=== PATIENT | female | born 1995 ===

== ENCOUNTER 2020-10-16 10:09 | Emergency (ER) | payer OTHER, SELFPAY ==
[2020-10-16 10:43] VITALS: PULSE 80; RESP 16; TEMP 36.9; O2SAT 99; BMI 28.3
[2020-10-16] MEDS: 0.9 % Sodium Chloride 1,000 ML 999 ML IV (12:08)
[2020-10-16 12:16] LABS: Basophils Percent Auto 0.3 % (0-2); Eosinophils Absolute Auto 0.1 X10*3/uL (0.0-0.4); Eosinophils Percent Auto 1.6 % (0-4); Hemoglobin 12.2 g/dl (12.0-16.0); Imm Gran Abs Auto 0.02 X10*3/uL (0.00-0.03); Imm Gran Pct Auto 0.3 % (0.0-0.4); Lymphocytes Absolute Auto 1.7 X10*3/uL (1.2-4.9); Lymphocytes Percent Auto 23.9 % (20-40); MANUAL DIFF FLAG NO; Mean Corpuscular Hemoglobin 26.7 pg (27.0-33.0); Mean Platelet Volume 8.9 fL (9.4-12.3); Monocytes Absolute Auto 0.6 X10*3/uL (0.1-1.2); Monocytes Percent Auto 8.4 % (2-11); Neutrophils Absolute Auto 4.8 X10*3/uL (2.0-8.3); Neutrophils Percent Auto 65.5 % (45-73); Platelet Count 341 X10*3/uL (160-400); Red Blood Count 4.57 X10*6/uL (4.20-5.50); Red Cell Distribution Width 13.6 % (11.0-16.0); White Blood Count 7.3 X10*3/uL (4.8-10.8)
[2020-10-16 12:19] LABS: UPreg QC Valid YES; Urine Pregnancy POSITIVE (NEGATIVE)
--- NOTE | 2020-10-16 12:28 | US_ITS ---
EXAMINATION: ULTRASOUND OB LESS THAN 14 WEEKS CLINICAL INFORMATION: Right-sided pelvic pain COMPARISON: Ultrasound OB 12/26/2019 TECHNIQUE: Transabdominal pelvic ultrasound was performed. FINDINGS: The uterus is anteverted. There is a intrauterine gestational sac with visualization of yolk sac, pole and a heart rate. The heart rate measures 1 20 bpm. The crown-rump length measures 0.52 cm corresponding to 6 weeks 2 days and PAUL of 06/09/2021. Right ovary measures 3.0 x 2.5 x 2.0 cm. There is a small corpus luteal cyst measuring 2.0 x 1.5 x 1.2 cm. Left ovary measures 2.0 x 1.9 x 1.9 cm. There is no free fluid in cul-de-sac. US/US OB <= 14 weeks fetus IMPRESSION: Single live intrauterine fetus with an ultrasound distal age of 6 weeks and 2 days. Simple corpus luteal cyst right ovary. The left ovary is unremarkable.
[2020-10-16 12:46] LABS: Alanine Aminotransferase 11 U/L (0-31); Albumin Level 4.5 g/dL (3.5-5.0); Alkaline Phosphatase 52 U/L (39-117); Anion Gap 15 (12-20); Aspartate Amino Transferase 15 U/L (5-31); Bilirubin Total 0.7 mg/dL (0.0-1.0); Blood Urea Nitrogen 12 mg/dL (9-16); Calcium 9.4 mg/dL (8.4-10.2); Carbon Dioxide 23 mmol/L (22-29); Chloride 101 mmol/L (96-108); Creatinine Clr Calc Pharmacy 99.5; Estimated Glomerular Filt Rate > 60; Glucose Random 79 mg/dL (60-115); Sodium 135 mmol/L (135-145); Total Protein 7.7 g/dL (6.5-8.0)
[2020-10-16] MEDS: ondansetron HCL 4 MG/2 ML VIAL IVPUSH (13:34)
[2020-10-16 14:00] VITALS: O2SAT 16
[2020-10-16 14:01] LABS: Glucose Urine UA NEG (NEG); Leukocyte Esterase Urine NEG (NEG); Nitrite Urine NEG (NEG); Specific Gravity - Urine >= 1.030 (1.005-1.025); Urine Blood NEG (NEG); Urine Ketones >=80 MG/DL (NEG); Urine Protein NEG (NEG-TRACE)
[2020-10-16 14:08] LABS: Appearance Urine HAZY; Color Urine YELLOW
[2020-10-16 14:12] LABS: UACC CULT YES
[2020-10-16 14:13] LABS: RBC Urine 0 /HPF (0); Squamous Epithelial Cell Urine 3+ /LPF
[2020-10-16 14:14] LABS: Bacteria Urine 2+ /LPF; Mucus Urine TRACE /LPF
--- NOTE | 2020-10-16 15:29 | PC.NURSE ---
pt requested iv to be removed. pt left w/o dc paperwork.
--- NOTE | 2020-10-16 15:38 | ED.ABDPAIN ---
HPI - Abdominal Pain General Chief Complaint: Abdominal Pain <Tim Talavera NP - Last Filed: 10/16/20 15:48> Stated Complaint: abd pain <Tim Talavera NP - Last Filed: 10/16/20 15:48> Time Seen by Provider: 10/16/20 10:34 <Tim Talavera NP - Last Filed: 10/16/20 15:48> Source: patient <Tim Talavera NP - Last Filed: 10/16/20 15:48> Mode of arrival: ambulatory <Tim Talavera NP - Last Filed: 10/16/20 15:48> Limitations: no limitations <Tim Talavera NP - Last Filed: 10/16/20 15:48> History of Present Illness HPI narrative: 25-year-old female who reports history of urine tract infection with pyelonephritis in the past presenting with complaint of malodorous urine and left-sided pelvic pain and mild right flank pain ongoing for past several days with associated nausea and vomiting. States urine is malodorous but no dysuria. No concern for STI. No rash. States there is no recent travel or antibiotic use. <Tim Talavera NP - Last Filed: 10/16/20 15:48> MD elicited complaint: abdominal pain and flank pain <Tim Talavera NP - Last Filed: 10/16/20 15:48> Location: pelvis <Tim Talavera NP - Last Filed: 10/16/20 15:48> Severity: moderate <Tim Talavera NP - Last Filed: 10/16/20 15:48> Quality: aching <Tim Talavera NP - Last Filed: 10/16/20 15:48> Migration to: no migration <Tim Talavera NP - Last Filed: 10/16/20 15:48> Associated symptoms: denies other symptoms <Tim Talavera NP - Last Filed: 10/16/20 15:48> Related Data Home Medications: Home Medications Medication Instructions Recorded Confirmed No Known Home Meds 10/16/20 10/16/20 <Tim Talavera NP - Last Filed: 10/16/20 15:48> Allergies/Adverse Reactions: Allergies Allergy/AdvReac Type Severity Reaction Status Date / Time No Known Allergies Allergy Unknown UNKNOWN Unverified 06/20/20 16:51 [NO KNOWN ALLERGIES] <Tim Talavera NP - Last Filed: 10/16/20 15:48> Review of Systems Review of Systems Constitutional: No Weight loss, No Fever, No Chills, No Night Sweats, No Fatigue, No Malaise ENT/Mouth: No Hearing loss, No Ear Pain, No Nasal Congestion, No Sinus Pain, No Hoarseness, No sore throat, No Rhinorrhea, No Swallowing Difficulty Eyes: No Eye Pain, No Swelling, No Redness, No Foreign Body, No Discharge, No Vision Changes Cardiovascular: No Chest Pain, No SOB, No Dyspnea on Exertion, No Orthopnea, No Edema, No Palpitations Respiratory: No Cough, No Sputum, No Wheezing, No Smoke Exposure, No Dyspnea Gastrointestinal: As noted in HPI, No Hematochezia, No Melena Genitourinary: no irregular bleeding, No Dysuria, No Urinary Frequency, No Hematuria, No Urinary Incontinence, No Urgency, No Flank Pain, No Urinary Flow Changes, No Hesitancy Musculoskeletal: No joint pain, No Myalgias, No Joint Swelling Skin: No Skin Lesions, No rash Neuro: No Weakness, No Numbness, No Paresthesias, No Loss of Consciousness, No Dizziness, No Headache Psych: No Social Issues Heme/Lymph: No Bruising, No Bleeding,No Lymphadenopathy Endocrine: No Polyuria, No Polydipsia, No Temperature Intolerance <Tim Talavera NP - Last Filed: 10/16/20 15:48> Yes all other systems are reviewed and are negative <Tim Talavera NP - Last Filed: 10/16/20 15:48> Physical Exam Vital Signs: Vital Signs: Last Vital Signs Temp 98.4 F 10/16/20 10:43 Pulse 80 10/16/20 10:43 Resp 16 10/16/20 10:43 Pulse Ox 16 L 10/16/20 14:00 Body Mass Index 28.3 Reviewed <Tim Talavera NP - Last Filed: 10/16/20 15:48> Vital Signs: Last Vital Signs Temp 98.4 F 10/16/20 10:43 Pulse 80 10/16/20 10:43 Resp 16 10/16/20 10:43 Pulse Ox 16 L 10/16/20 14:00 Body Mass Index 28.3 <Benji Waldrop MD - Last Filed: 10/24/20 23:58> Const: General: cooperative and healthy appearing; No acute distress or intoxicated appearing <Tim LottTIFFANY webb - Last Filed: 10/16/20 15:48> Nutritional Appearance: average body habitus <Tim Talavera COMMIS CHEF - Last Filed: 10/16/20 15:48> Orientation/consciousness: patient oriented x3 <[facility] Talavera, COMMIS CHEF - Last Filed: 10/16/20 15:48> HENMT: Head: Yes normal to inspection <Tim Talavera, - Last Filed: 10/16/20 15:48> Ears: hearing grossly normal bilaterally <[facility] Talavera, COMMIS CHEF - Last Filed: 10/16/20 15:48> Eyes: General: appearance normal, both eyes and all related structures <Timtorito Talavera COMMIS CHEF - Last Filed: 10/16/20 15:48> Visual Mena: normal visual mena by confrontation <Tim Talavera, COMMIS CHEF - Last Filed: 10/16/20 15:48> Neck: Neck: Yes normal visual inspection, No positive Brudzinski's sign, No positive Kernig's sign and No tender <Tim Talavera, COMMIS CHEF - Last Filed: 10/16/20 15:48> Thyroid: Thyroid normal <Tim Talavera, COMMIS CHEF - Last Filed: 10/16/20 15:48> Chest: Chest palpation & inspection: normal inspection of the chest <Tim Lotttracey COMMIS CHEF - Last Filed: 10/16/20 15:48> Resp: Effort & Inspection: normal respiratory effort <Tim TalaveraTIFFANY webb - Last Filed: 10/16/20 15:48> Cardio: Jugular venous distension: no JVD <Tim Talavera, COMMIS CHEF - Last Filed: 10/16/20 15:48> Rhythm: regular rhythm <Tim Talavera, COMMIS CHEF - Last Filed: 10/16/20 15:48> Heart sounds: S1 normal heart sound present and S2 normal heart sound present <Tim Talavera, COMMIS CHEF - Last Filed: 10/16/20 15:48> GI: Inspection: Yes normal to inspection <[facility] TalaveraTIFFANY webb - Last Filed: 10/16/20 15:48> Palpation (GI): Soft to palpation, not firm, nontender, no guarding, not rigid and hepatosplenomegaly present <Tim TIFFANY Talavera - Last Filed: 10/16/20 15:48> Percussion: Yes normal to percussion <Tim TIFFANY Talavera - Last Filed: 10/16/20 15:48> Auscultation: normal bowel sounds <Tim TIFFANY Talavera - Last Filed: 10/16/20 15:48> : General: Yes no CVA tenderness <Tim TIFFANY Talavera - Last Filed: 10/16/20 15:48> Back/Spine/Pelvis: Back: no CVA tenderness <[facility] TIFFANY Talavera - Last Filed: 10/16/20 15:48> Skin: General skin exam: no rashes or lesions noted <Tim TIFFANY Talavera - Last Filed: 10/16/20 15:48> Neuro: General: patient oriented x3 <Timtorito Talavera NP - Last Filed: 10/16/20 15:48> Extrem: General: Yes normal to inspection <Tim TIFFANY Talavera - Last Filed: 10/16/20 15:48> Course Course Course Narrative: In review 25-year-old female who reports history of urine infection as well as pyelonephritis presenting with complaint of malodorous urine with left-sided pelvic pain as well as left-sided flank pain feeling consistent with her prior urine infection. States no concern for STI. Upon arrival nontoxic appearing. Has had some associated nausea and vomiting. Will check labs including UA and U preg. Will treat with IV fluids. Clinically at this time no acute abdomen. No CVA tenderness. Points to pain in the right lower pelvic region. States she is sure she does not have any STI and would like to defer testing at this time. <Timtorito Talavera NP - Last Filed: 10/16/20 15:48> I have reviewed the chart <Benji Waldrop MD - Last Filed: 10/24/20 23:58> Reevaluation(s) Reevaluation #1: In review of chart appears to be she is chronically mildly anemic. Today CBC is within normal limits. Chemistry still pending. Lab called with UA positive however unable to do an Allis is not enough urine patient advised to give us another urine. States she has suspicion about . At this time pelvic ultrasound ordered rule out ectopic . She has been resting comfortably on her phone receiving IV fluids. <Tim Talavera NP - Last Filed: 10/16/20 15:48> Reevaluation #2: Urine positive ketones given fluid here. No nausea or vomiting. Her chemistries are unremarkable. She went for ultrasound and awaiting results. <Tim Talavera NP - Last Filed: 10/16/20 15:48> Reevaluation #3: Shortly after reviewed her lab results with her and aware that were awaiting ultrasound results she apparently told nurse that she had to go home as she had things going on the the nurse informed me the patient did not want to wait and eloped. Per the nurse the patient has stated to her that the respiratory therapy technician had provided her pictures of her for her and given her estimate date. I reviewed the ultrasound shows findings consistent with Single IUP with gestational age of 6 weeks 2 days Simple corpus luteal cyst right ovary. The left ovary is unremarkable. I attempted to call the patient left a voicemail no answer. HCG quant ordered. If patient returns call will refer to her primary care and our OB team for follow-up. <Tim Talavera NP - Last Filed: 10/16/20 15:48> MDM - Abdominal Pain Lab Data Result diagrams: : 10/16/20 12:09 10/16/20 12:09 <Tim Talavera NP - Last Filed: 10/16/20 15:48> Labs: Lab Results 10/16/20 10/16/20 10/16/20 Range/Units 12:09 12:09 12:09 WBC 7.3 (4.8-10.8) X10*3/uL RBC 4.57 (4.20-5.50) X10*6/uL Hgb 12.2 (12.0-16.0) g/dl Hct 37.0 (37-47) % MCV 81.0 (80-98) fL MCH 26.7 L (27.0-33.0) pg MCHC 33.0 (31.0-35.0) g/dl RDW 13.6 (11.0-16.0) % Plt Count 341 (160-400) X10*3/uL MPV 8.9 L (9.4-12.3) fL Immature Gran % (Auto) 0.3 (0.0-0.4) % Neut % (Auto) 65.5 (45-73) % Lymph % (Auto) 23.9 (20-40) % Reagan % (Auto) 8.4 (2-11) % Eos % (Auto) 1.6 (0-4) % Baso % (Auto) 0.3 (0-2) % Lymph # (Auto) 1.7 (1.2-4.9) X10*3/uL Reagan # (Auto) 0.6 (0.1-1.2) X10*3/uL Eos # (Auto) 0.1 (0.0-0.4) X10*3/uL Baso # (Auto) 0.0 (0.0-0.2) X10*3/uL Abs Immat Gran (auto) 0.02 (0.00-0.03) X10*3/uL Absolute Neuts (auto) 4.8 (2.0-8.3) X10*3/uL Absolute Nucleated RBC 0.000 (0.0-0.012) X10*3/uL Nucleated RBC % (auto) 0.0 (0.0-0.2) /100WBC Sodium 135 (135-145) mmol/L Potassium 4.0 (3.3-5.1) mmol/l Chloride 101 (96-108) mmol/L Carbon Dioxide 23 (22-29) mmol/L Anion Gap 15 (12-20) BUN 12 (9-16) mg/dL Creatinine 0.70 (0.5-1.4) mg/dL Estim Creat Clear Calc 99.5 Estimated GFR > 60 Random Glucose 79 (60-115) mg/dL Calcium 9.4 (8.4-10.2) mg/dL Total Bilirubin 0.7 (0.0-1.0) mg/dL AST 15 (5-31) U/L ALT 11 (0-31) U/L Alkaline Phosphatase 52 (39-117) U/L Total Protein 7.7 (6.5-8.0) g/dL Albumin 4.5 (3.5-5.0) g/dL Urine Color Cancelled Urine Appearance Cancelled Urine pH Cancelled Ur Specific [employer] Cancelled Urine Protein Cancelled Urine Glucose (UA) Cancelled Urine Ketones Cancelled Urine Blood Cancelled Urine Nitrite Cancelled Ur Leukocyte Esterase Cancelled Urine RBC (0) /HPF Urine WBC (0-4) /HPF Ur Squamous Epith Cells /LPF Urine Bacteria /LPF Urine Mucus /LPF Urine Test POSITIVE H (NEGATIVE) 10/16/20 Range/Units 13:35 WBC (4.8-10.8) X10*3/uL RBC (4.20-5.50) X10*6/uL Hgb (12.0-16.0) g/dl Hct (37-47) % MCV (80-98) fL MCH (27.0-33.0) pg MCHC (31.0-35.0) g/dl RDW (11.0-16.0) % Plt Count (160-400) X10*3/uL MPV (9.4-12.3) fL Immature Gran % (Auto) (0.0-0.4) % Neut % (Auto) (45-73) % Lymph % (Auto) (20-40) % Reagan % (Auto) (2-11) % Eos % (Auto) (0-4) % Baso % (Auto) (0-2) % Lymph # (Auto) (1.2-4.9) X10*3/uL Reagan # (Auto) (0.1-1.2) X10*3/uL Eos # (Auto) (0.0-0.4) X10*3/uL Baso # (Auto) (0.0-0.2) X10*3/uL Abs Immat Gran (auto) (0.00-0.03) X10*3/uL Absolute Neuts (auto) (2.0-8.3) X10*3/uL Absolute Nucleated RBC (0.0-0.012) X10*3/uL Nucleated RBC % (auto) (0.0-0.2) /100WBC Sodium (135-145) mmol/L Potassium (3.3-5.1) mmol/l Chloride (96-108) mmol/L Carbon Dioxide (22-29) mmol/L Anion Gap (12-20) BUN (9-16) mg/dL Creatinine (0.5-1.4) mg/dL Estim Creat Clear Calc Estimated GFR Random Glucose (60-115) mg/dL Calcium (8.4-10.2) mg/dL Total Bilirubin (0.0-1.0) mg/dL AST (5-31) U/L ALT (0-31) U/L Alkaline Phosphatase (39-117) U/L Total Protein (6.5-8.0) g/dL Albumin (3.5-5.0) g/dL Urine Color YELLOW Urine Appearance HAZY Urine pH 6.0 Ur Specific [employer] >= 1.030 H Urine Protein NEG Urine Glucose (UA) NEG Urine Ketones >=80 Urine Blood NEG Urine Nitrite NEG Ur Leukocyte Esterase NEG Urine RBC 0 (0) /HPF Urine WBC 5-9 H (0-4) /HPF Ur Squamous Epith Cells 3+ /LPF Urine Bacteria 2+ /LPF Urine Mucus TRACE /LPF Urine Test (NEGATIVE) <Tim Talavera NP - Last Filed: 10/16/20 15:48> Lab Results 10/16/20 10/16/20 10/16/20 Range/Units 12:09 12:09 12:09 WBC 7.3 (4.8-10.8) X10*3/uL RBC 4.57 (4.20-5.50) X10*6/uL Hgb 12.2 (12.0-16.0) g/dl Hct 37.0 (37-47) % MCV 81.0 (80-98) fL MCH 26.7 L (27.0-33.0) pg MCHC 33.0 (31.0-35.0) g/dl RDW 13.6 (11.0-16.0) % Plt Count 341 (160-400) X10*3/uL MPV 8.9 L (9.4-12.3) fL Immature Gran % (Auto) 0.3 (0.0-0.4) % Neut % (Auto) 65.5 (45-73) % Lymph % (Auto) 23.9 (20-40) % Reagan % (Auto) 8.4 (2-11) % Eos % (Auto) 1.6 (0-4) % Baso % (Auto) 0.3 (0-2) % Lymph # (Auto) 1.7 (1.2-4.9) X10*3/uL Reagan # (Auto) 0.6 (0.1-1.2) X10*3/uL Eos # (Auto) 0.1 (0.0-0.4) X10*3/uL Baso # (Auto) 0.0 (0.0-0.2) X10*3/uL Abs Immat Gran (auto) 0.02 (0.00-0.03) X10*3/uL Absolute Neuts (auto) 4.8 (2.0-8.3) X10*3/uL Absolute Nucleated RBC 0.000 (0.0-0.012) X10*3/uL Nucleated RBC % (auto) 0.0 (0.0-0.2) /100WBC Sodium 135 (135-145) mmol/L Potassium 4.0 (3.3-5.1) mmol/l Chloride 101 (96-108) mmol/L Carbon Dioxide 23 (22-29) mmol/L Anion Gap 15 (12-20) BUN 12 (9-16) mg/dL Creatinine 0.70 (0.5-1.4) mg/dL Estim Creat Clear Calc 99.5 Estimated GFR > 60 Random Glucose 79 (60-115) mg/dL Calcium 9.4 (8.4-10.2) mg/dL Total Bilirubin 0.7 (0.0-1.0) mg/dL AST 15 (5-31) U/L ALT 11 (0-31) U/L Alkaline Phosphatase 52 (39-117) U/L Total Protein 7.7 (6.5-8.0) g/dL Albumin 4.5 (3.5-5.0) g/dL Urine Color Cancelled Urine Appearance Cancelled Urine pH Cancelled Ur Specific [employer] Cancelled Urine Protein Cancelled Urine Glucose (UA) Cancelled Urine Ketones Cancelled Urine Blood Cancelled Urine Nitrite Cancelled Ur Leukocyte Esterase Cancelled Urine RBC (0) /HPF Urine WBC (0-4) /HPF Ur Squamous Epith Cells /LPF Urine Bacteria /LPF Urine Mucus /LPF Urine Test POSITIVE H (NEGATIVE) 10/16/20 Range/Units 13:35 WBC (4.8-10.8) X10*3/uL RBC (4.20-5.50) X10*6/uL Hgb (12.0-16.0) g/dl Hct (37-47) % MCV (80-98) fL MCH (27.0-33.0) pg MCHC (31.0-35.0) g/dl RDW (11.0-16.0) % Plt Count (160-400) X10*3/uL MPV (9.4-12.3) fL Immature Gran % (Auto) (0.0-0.4) % Neut % (Auto) (45-73) % Lymph % (Auto) (20-40) % Reagan % (Auto) (2-11) % Eos % (Auto) (0-4) % Baso % (Auto) (0-2) % Lymph # (Auto) (1.2-4.9) X10*3/uL Reagan # (Auto) (0.1-1.2) X10*3/uL Eos # (Auto) (0.0-0.4) X10*3/uL Baso # (Auto) (0.0-0.2) X10*3/uL Abs Immat Gran (auto) (0.00-0.03) X10*3/uL Absolute Neuts (auto) (2.0-8.3) X10*3/uL Absolute Nucleated RBC (0.0-0.012) X10*3/uL Nucleated RBC % (auto) (0.0-0.2) /100WBC Sodium (135-145) mmol/L Potassium (3.3-5.1) mmol/l Chloride (96-108) mmol/L Carbon Dioxide (22-29) mmol/L Anion Gap (12-20) BUN (9-16) mg/dL Creatinine (0.5-1.4) mg/dL Estim Creat Clear Calc Estimated GFR Random Glucose (60-115) mg/dL Calcium (8.4-10.2) mg/dL Total Bilirubin (0.0-1.0) mg/dL AST (5-31) U/L ALT (0-31) U/L Alkaline Phosphatase (39-117) U/L Total Protein (6.5-8.0) g/dL Albumin (3.5-5.0) g/dL Urine Color YELLOW Urine Appearance HAZY Urine pH 6.0 Ur Specific [employer] >= 1.030 H Urine Protein NEG Urine Glucose (UA) NEG Urine Ketones >=80 Urine Blood NEG Urine Nitrite NEG Ur Leukocyte Esterase NEG Urine RBC 0 (0) /HPF Urine WBC 5-9 H (0-4) /HPF Ur Squamous Epith Cells 3+ /LPF Urine Bacteria 2+ /LPF Urine Mucus TRACE /LPF Urine Test (NEGATIVE) <Benji Waldrop MD - Last Filed: 10/24/20 23:58> Discharge Plan Discharge Clinical Impression: , Nausea & vomiting <Tim Talavera NP - Last Filed: 10/16/20 15:48> Patient Disposition: Elopement <Tim Talavera NP - Last Filed: 10/16/20 15:48> Prescriptions: No Action No Known Home Meds RF: 0 <Tim Talavera NP - Last Filed: 10/16/20 15:48> Referrals: Johnson Olivera MD [Physician] - 2 days <Tim Talavera NP - Last Filed: 10/16/20 15:48> Interventions: ED Discharge Assessment Last Done: 10/16/20 15:59 <Tim Talavera NP - Last Filed: 10/16/20 15:48> Discharge Date/Time: 10/16/20 15:59 <Tim Talavera NP - Last Filed: 10/16/20 15:48> PMF Past Medical History Medical History: Medical History (Updated 10/17/20 @ 00:00 by Deloris Hubbard) No known health problems <Tim Talavera NP - Last Filed: 10/16/20 15:48> Social History Social History: Social History Alcohol intake: never Smoked in Last 30 Days: No Use of substances other than those prescribed or required for medical reasons: No Advance Directives: No Advance Directives Information Provided: Yes <Tim Talavera NP - Last Filed: 10/16/20 15:48>
== END 2020-10-16 15:59 | disposition left against medical advice (07) ==
PROVIDERS: Nurse Practitioner Primary Care; Emergency Provider Emergency Medicine; PCP Family Medicine
DX: O34.81 Maternal care for other abnormalities of pelvic organs, first trimester (principal); Z3A.01 Less than 8 weeks gestation of pregnancy; R11.2 Nausea with vomiting, unspecified
CPT/HCPCS: 36415; 76801; 80053; 81001; 81025; 85025; 87086; 87088; 87186; 96361; 96374; 99284; J2405

== ENCOUNTER 2022-04-09 12:06 | Emergency (ER) | payer OTHER, SELFPAY ==
--- NOTE | ~2022-04-09 | US_ITS ---
EXAMINATION: US VENOUS ULTRASOUND WITH DOPPLER LOWER EXTREMITY, BILATERAL CLINICAL INFORMATION: Bilateral lower extremity swelling with COMPARISON: None TECHNIQUE: Ultrasound of the deep veins is performed from the hip to the calf with compression sonography and color and pulse Doppler assessment. Spectral analysis with color-flow imaging is performed. FINDINGS: RIGHT: There is normal venous compression and respiratory variation and augmented flow. The visualized common femoral vein, superficial femoral vein, profunda femoral vein, popliteal vein, and the trifurcation region shows no evidence of deep venous thrombosis. There is no significant popliteal fossa cyst. LEFT: There is normal venous compression and respiratory variation and augmented flow. The visualized common femoral vein, superficial femoral vein, profunda femoral vein, popliteal vein, and the trifurcation region shows no evidence of deep venous thrombosis. There is no significant popliteal fossa cyst. If the patient's symptoms persist, followup ultrasound in 5 days 7 days might be of value to exclude proximal propagation from a non-visualized calf vein. US/US venous duplex LE BI IMPRESSION: No DVT demonstrated either lower extremity.
--- NOTE | ~2022-04-09 | US_ITS ---
EXAMINATION: US RETROPERITONEAL LIMITED (RENAL ONLY) CLINICAL INFORMATION: Right kidney stones. COMPARISON: 09/15/2019 TECHNIQUE: Sonographic evaluation of the kidneys was performed with a high-frequency transducer. FINDINGS: RIGHT KIDNEY: 10.5 x 4.4 x 5.7 cm (SAG x AP x TRV). The kidney is normal in size, contour, and echogenicity. Renal cortical thickness is normal. No calculi or focal parenchymal lesions. No hydronephrosis. LEFT KIDNEY: 9.5 x 4.4 x 4.8 cm (SAG x AP x TRV). The kidney is normal in size, contour, and echogenicity. Renal cortical thickness is normal. No calculi or focal parenchymal lesions. No hydronephrosis. US/US renal BI IMPRESSION: No hydronephrosis or calculus identified.
--- NOTE | ~2022-04-09 | US_ITS ---
EXAMINATION: US OBSTETRICAL ULTRASOUND CLINICAL INFORMATION: Abdomen/flank pain, COMPARISON: None. TECHNIQUE: Sonographic evaluation of the pelvis was performed transabdominally and transvaginally. FINDINGS: The uterus measures 9.0 cm in length and 4.0 x 5.3 cm in AP and transverse dimensions. There is an anechoic focus along the endometrium, suggestive of a gestational sac with mean sac diameter of 0.3 cm. No definite yolk sac or pole is seen at this time. The right ovary measures 4.2 x 2.2 x 2.3 cm. There is a complex structure in the right ovary measuring up to 2.2 cm without internal flow, suggestive of a corpus luteal cyst. The left ovary measures 3.3 x 1.9 x 3.7 cm. No adnexal mass is identified. No free fluid is seen. US/US OB pelvic and transvaginal IMPRESSION: A 0.3 cm anechoic focus along the endometrium is suggestive of a gestational sac, though no yolk sac or pole is seen at this time to definitively confirm intrauterine . Therefore, short-term sonographic follow-up is recommended to assess for these findings. No adnexal mass is seen to strongly suggest ectopic .
[2022-04-09 12:17] VITALS: BP 120/78; PULSE 94; RESP 18; TEMP 36.6; O2SAT 99; BMI 31.8
[2022-04-09 12:36] LABS: MANUAL DIFF FLAG NO
[2022-04-09 12:39] LABS: Appearance Urine CLEAR; Basophils Percent Auto 0.4 % (0-2); Color Urine YELLOW; Eosinophils Absolute Auto 0.3 X10*3/uL (0.0-0.4); Eosinophils Percent Auto 4.1 % (0-4); Glucose Urine UA NEG (NEG); Hematocrit 35.4 % (37.0-47.0); Hemoglobin 11.7 g/dl (12.0-16.0); Imm Gran Abs Auto 0.04 X10*3/uL (0.00-0.03); Imm Gran Pct Auto 0.5 % (0.0-0.4); Leukocyte Esterase Urine TRACE (NEG); Lymphocytes Absolute Auto 2.6 X10*3/uL (1.2-4.9); Lymphocytes Percent Auto 35.9 % (20-40); Mean Corpuscular HGB Conc 33.1 g/dl (31.0-35.0); Mean Corpuscular Volume 84.7 fL (80.0-98.0); Mean Platelet Volume 9.1 fL (9.4-12.3); Monocytes Absolute Auto 0.5 X10*3/uL (0.1-1.2); Monocytes Percent Auto 7.2 % (2-11); Neutrophils Absolute Auto 3.8 x10*3/uL (2.0-8.3); Neutrophils Percent Auto 51.9 % (45-73); Nitrite Urine NEG (NEG); PH 5.5 (5.0-8.0); Platelet Count 315 X10*3/uL (160-400); Red Blood Count 4.18 X10*6/uL (4.20-5.50); Red Cell Distribution Width 13.1 % (11.0-16.0); Specific Gravity - Urine 1.025 (1.005-1.025); Urine Blood NEG (NEG); Urine Ketones NEG (NEG); Urine Protein NEG (NEG-TRACE); White Blood Count 7.3 X10*3/uL (4.8-10.8)
[2022-04-09 12:45] LABS: UPreg QC Valid YES; Urine Pregnancy POSITIVE (NEGATIVE)
[2022-04-09 12:52] LABS: Alanine Aminotransferase 11 U/L (0-31); Albumin Level 4.1 g/dL (3.5-5.0); Alkaline Phosphatase 56 U/L (39-117); Anion Gap 11 (12-20); Aspartate Amino Transferase 14 U/L (5-31); Bilirubin Total 0.4 mg/dL (0.0-1.0); Blood Urea Nitrogen 7 mg/dL (9-16); Calcium 9.2 mg/dL (8.4-10.2); Carbon Dioxide 24 mmol/L (22-29); Chloride 107 mmol/L (96-108); Creatinine Clr Calc Pharmacy 102.5; Estimated Glomerular Filt Rate > 60; Glucose Random 82 mg/dL (60-115); Potassium 3.8 mmol/L (3.3-5.1); Sodium 138 mmol/L (135-145); Total Protein 6.9 g/dL (6.5-8.0)
[2022-04-09 12:53] LABS: Bacteria Urine 1+ /LPF; Squamous Epithelial Cell Urine 2+ /LPF
[2022-04-09 14:07] VITALS: BP 117/76; PULSE 87; RESP 16; TEMP 36.9; O2SAT 100
--- NOTE | 2022-04-09 14:11 | PC.NURSE ---
pt a/o x 4 no sob/trey noted skin pink warm dry speaks in full sentences. corinna lower ext 1+ non-pitting edema noted. aware.
--- NOTE | 2022-04-09 14:19 | ED_ITS ---
HPI - Abdominal Pain General Chief Complaint: Abdominal Pain Stated Complaint: right side pain, severe ankle swellen, abd pain Time Seen by Provider: 04/09/22 13:55 Source: patient Mode of arrival: ambulatory Limitations: no limitations History of Present Illness HPI narrative: 27-year-old female presents ED for multiple complaints. Patient's 1st complaint is right flank and right lower abdominal cramping for the past week. Patient denies any vaginal bleeding or abnormal vaginal discharge. Denies any recent trauma. Patient's secondary complaint is bilateral ankle swelling for a week also. Patient denies any chest pain or shortness of breath. Patient denies any dizziness, headache, or passing out. Patient states her menstruation has been inconsistent. Patient states last normal menstruation was in February. Patient denies any pleurisy, recent long travel, recent surgery, or any oral control pills. Related Data Previous Rx's Medication Instructions Recorded cephalexin 500 mg capsule 500 mg PO QID 7 days #28 caps 04/09/22 Allergies Allergy/AdvReac Type Severity Reaction Status Date / Time No Known Allergies Allergy Unknown UNKNOWN Verified 04/09/22 12:17 [NO KNOWN ALLERGIES] Review of Systems Review of Systems Right-sided flank lower abdominal pain. Bilateral ankle swelling. Yes all other systems are reviewed and are negative PMFSH Past Medical History Medical History No known health problems Social History Social History Alcohol intake: never Patient Tobacco Use Status: Never used Tobacco Physical Exam ED Vital Signs: Vital Signs - 24 hr 04/09/22 12:17 04/09/22 14:07 04/09/22 17:09 Temperature 97.9 F 98.5 F 98.5 F Pulse Rate 94 87 103 H Respiratory Rate 18 16 20 Blood Pressure 120/78 117/76 107/54 L Pulse Oximetry 99 100 99 Oxygen Delivery Method Room Air Room Air Room Air BMI result Body Mass Index 31.8 Const General: cooperative, healthy appearing, comfortable, no acute distress, well developed, alert, awake and Physically active Orientation/consciousness: oriented to time and patient oriented x3 HENMT Head: Yes normal to inspection, Yes No palpable skull fracture present, Yes normocephalic, Yes atraumatic and No abrasion Eyes General: appearance normal, both eyes and all related structures Neck Neck: Yes normal visual inspection, Yes full ROM, Yes no lymphadenopathy, Yes no meningeal signs, Yes trachea midline, Yes supple, No anterior neck swelling and No tender Chest Chest palpation & inspection: normal inspection of the chest and normal palpation of entire chest wall Resp Effort & Inspection: normal respiratory effort and able to speak in complete sentences Auscultation: clear to auscultation bilaterally Cardio Jugular venous distension: no JVD Heart sounds: S1 normal heart sound present and S2 normal heart sound present GI Inspection: Yes normal to inspection and No abdominal wall ecchymosis Palpation (GI): not firm, Tenderness to palpation present (GI) in the RLQ, no guarding and not rigid General: No CVA tenderness and Yes no CVA tenderness External Female Exam: normal external appearance Speculum Exam - Vagina: normal appearance of the vagina and normal vaginal discharge Speculum Exam - Cervix: normal appearance of the cervix, normal palpation and Cervical os closed Bimanual exam- vagina & uterus: normal palpation Back/Spine/Pelvis Back: no CVA tenderness, No CVA tenderness and No back tenderness Skin General skin exam: no rashes or lesions noted, elasticity normal and turgor normal Neuro General: oriented to time, patient oriented x3, gait normal, no meningeal signs and CN's II-XI intact bilaterally Extrem General: Yes normal to inspection and Yes full ROM Ankle/foot/toe images: 1. Positive for bilateral ankle swelling. Negative for any erythema, crepitus, ecchymosis, or deformity. Pedal pulses intact. Negative for swelling of leg/calf/knee. Pedal pulse intact. Motor/neuro/vascular exam intact 2. Positive for bilateral ankle swelling. Negative for any erythema, crepitus, ecchymosis, or deformity. Pedal pulses intact. Negative for swelling of leg/calf/knee. Pedal pulse intact. Motor/neuro/vascular exam intact Psych Appearance: grossly normal, well kempt and not disheveled Course Course Course Narrative: Labs ordered. Reevaluation(s) Reevaluation #1: Patient's urine is positive for . Patient did not know she was . Patient did not believe she is because she is on Depo shot as a control. Will add abdominal ultrasound to rule out topic . Will do ultrasound of kidneys to make sure there is no kidney stones. Urine does not show protein and blood pressure normal. Not suspecting Preecamplsia. Due to patient found to be but does not know how far along. Due to not knowing how far along she is in we will add bilateral lower extremity ultrasound. Lower extremity ultrasound ordered. HCG ordered. BNP ordered to rule out any hypertrophic cardiomyopathy other very unlikely due to patient not having any chest pain or shortness of breath. Time: 14:35 Reevaluation #2: Lower extremity ultrasound negative for DVT. BNP. negative. Not suspecting DVT or hypertrophic cardiomyopathy. Ultrasound of kidneys negative for any kidney stones. Ultrasound shows gestational sac but no pole and negative for signs of ectopic . HCG at least 1500. Case discussed with Dr. Olivera of OBGYN who states patient is safe for discharge recommend patient return to the ED in 2 days for repeat hCG and ultrasound. Patient made aware of this. Patient states she will follow up again with her OBGYN at [facility] and was informed if she can't have appointment by Wednesday she should return to the ED for repeat ultrasound and hCG. UA shows UTI discharged with Keflex. Bilateral ankle swelling due to . EKG was not done. Not suspecting any heart attack. No need for troponin. No need for chest x-ray not suspecting CHF. BNP negative and patient having any chest pain or shortness of breath. Not suspecting PE. Time: 18:51 MDM - Abdominal Pain MDM Narrative Medical decision making narrative: . UTI Lab Data Result diagrams: 04/09/22 12:26 04/09/22 12:26 Labs: Lab Results 04/09/22 04/09/22 04/09/22 Range/Units 12:26 12:26 12:26 WBC 7.3 (4.8-10.8) X10*3/uL RBC 4.18 L (4.20-5.50) X10*6/uL Hgb 11.7 L (12.0-16.0) g/dl Hct 35.4 L (37.0-47.0) % MCV 84.7 (80.0-98.0) fL MCH 28.0 (27.0-33.0) pg MCHC 33.1 (31.0-35.0) g/dl RDW 13.1 (11.0-16.0) % Plt Count 315 (160-400) X10*3/uL MPV 9.1 L (9.4-12.3) fL Immature Gran % (Auto) 0.5 H (0.0-0.4) % Neut % (Auto) 51.9 (45-73) % Lymph % (Auto) 35.9 (20-40) % [place] % (Auto) 7.2 (2-11) % Eos % (Auto) 4.1 H (0-4) % Baso % (Auto) 0.4 (0-2) % Lymph # (Auto) 2.6 (1.2-4.9) X10*3/uL [place] # (Auto) 0.5 (0.1-1.2) X10*3/uL Eos # (Auto) 0.3 (0.0-0.4) X10*3/uL Baso # (Auto) 0.0 (0.0-0.2) X10*3/uL Abs Immat Gran (auto) 0.04 H (0.00-0.03) X10*3/uL Absolute Neuts (auto) 3.8 (2.0-8.3) x10*3/uL Absolute Nucleated RBC 0.000 (0.0-0.012) X10*3/uL Nucleated RBC % (auto) 0.0 (0.0-0.2) /100WBC PT (10.0-13.1) SEC INR (0.9-1.1) APTT (24.1-38.0) SEC Sodium 138 (135-145) mmol/L Potassium 3.8 (3.3-5.1) mmol/L Chloride 107 (96-108) mmol/L Carbon Dioxide 24 (22-29) mmol/L Anion Gap 11 L (12-20) BUN 7 L (9-16) mg/dL Creatinine 0.71 (0.5-1.4) mg/dL Estim Creat Clear Calc 102.5 Estimated GFR > 60 Random Glucose 82 (60-115) mg/dL Calcium 9.2 (8.4-10.2) mg/dL Total Bilirubin 0.4 (0.0-1.0) mg/dL AST 14 (5-31) U/L ALT 11 (0-31) U/L Alkaline Phosphatase 56 (39-117) U/L B-Natriuretic Peptide (<100) pg/mL Total Protein 6.9 (6.5-8.0) g/dL Albumin 4.1 (3.5-5.0) g/dL Beta HCG, Quant 1512 mIU/mL Urine Color YELLOW Urine Appearance CLEAR Urine pH 5.5 (5.0-8.0) Ur Specific [place] 1.025 (1.005-1.025) Urine Protein NEG (NEG-TRACE) MG/DL Urine Glucose (UA) NEG (NEG) MG/DL Urine Ketones NEG (NEG) MG/DL Urine Blood NEG (NEG) Urine Nitrite NEG (NEG) Ur Leukocyte Esterase TRACE H (NEG) Urine RBC 1-4 (0) /HPF Urine WBC 5-9 H (0-4) /HPF Ur Squamous Epith Cells 2+ /LPF Urine Bacteria 1+ /LPF Urine Test (NEGATIVE) 04/09/22 04/09/22 04/09/22 Range/Units 12:26 12:26 14:24 WBC (4.8-10.8) X10*3/uL RBC (4.20-5.50) X10*6/uL Hgb (12.0-16.0) g/dl Hct (37.0-47.0) % MCV (80.0-98.0) fL MCH (27.0-33.0) pg MCHC (31.0-35.0) g/dl RDW (11.0-16.0) % Plt Count (160-400) X10*3/uL MPV (9.4-12.3) fL Immature Gran % (Auto) (0.0-0.4) % Neut % (Auto) (45-73) % Lymph % (Auto) (20-40) % [place] % (Auto) (2-11) % Eos % (Auto) (0-4) % Baso % (Auto) (0-2) % Lymph # (Auto) (1.2-4.9) X10*3/uL [place] # (Auto) (0.1-1.2) X10*3/uL Eos # (Auto) (0.0-0.4) X10*3/uL Baso # (Auto) (0.0-0.2) X10*3/uL Abs Immat Gran (auto) (0.00-0.03) X10*3/uL Absolute Neuts (auto) (2.0-8.3) x10*3/uL Absolute Nucleated RBC (0.0-0.012) X10*3/uL Nucleated RBC % (auto) (0.0-0.2) /100WBC PT 11.2 (10.0-13.1) SEC INR 1.0 (0.9-1.1) APTT 34.1 (24.1-38.0) SEC Sodium (135-145) mmol/L Potassium (3.3-5.1) mmol/L Chloride (96-108) mmol/L Carbon Dioxide (22-29) mmol/L Anion Gap (12-20) BUN (9-16) mg/dL Creatinine (0.5-1.4) mg/dL Estim Creat Clear Calc Estimated GFR Random Glucose (60-115) mg/dL Calcium (8.4-10.2) mg/dL Total Bilirubin (0.0-1.0) mg/dL AST (5-31) U/L ALT (0-31) U/L Alkaline Phosphatase (39-117) U/L B-Natriuretic Peptide 49 (<100) pg/mL Total Protein (6.5-8.0) g/dL Albumin (3.5-5.0) g/dL Beta HCG, Quant mIU/mL Urine Color Urine Appearance Urine pH (5.0-8.0) Ur Specific [place] (1.005-1.025) Urine Protein (NEG-TRACE) MG/DL Urine Glucose (UA) (NEG) MG/DL Urine Ketones (NEG) MG/DL Urine Blood (NEG) Urine Nitrite (NEG) Ur Leukocyte Esterase (NEG) Urine RBC (0) /HPF Urine WBC (0-4) /HPF Ur Squamous Epith Cells /LPF Urine Bacteria /LPF Urine Test POSITIVE H (NEGATIVE) Discharge Plan Discharge Clinical Impression: , , spontaneous threatened, UTI (urinary tract infection) during Patient Disposition: Home, Self-Care Instructions: Threatened Miscarriage (ED), (ED), Urinary Tract Infection in (ED) Additional Instructions: Recommend repeat hCG blood test and ultrasound on Wednesday. If your OBGYN at [facility] cannot schedule for hCG and ultrasound on Wednesday at the facility he should return back to the ED for repeat hCG and ultrasound. Return to the ED immediately for any abdominal pain, profuse vaginal bleeding, vaginal bleeding, vaginal discharge, weakness, dizziness, chest pain, shortness of breath, calf pain, coughing up blood, weakness, dizziness, or any other concerning symptoms. Prescriptions: New cephalexin 500 mg capsule 500 mg PO QID 7 Days Qty: 28 0RF Stand Alone Forms: Work/School Release Interventions: ED Discharge Assessment Last Done: 04/09/22 19:12 Discharge Date/Time: 04/09/22 19:12 Print Language: [place]
[2022-04-09 14:42] LABS: Prothrombin Time 11.2 SEC (10.0-13.1)
[2022-04-09 14:44] LABS: Partial Thromboplastin Time 34.1 SEC (24.1-38.0)
[2022-04-09 14:47] LABS: HCG Quantitative 1512 mIU/mL
[2022-04-09 14:53] LABS: B Type Natriuretic Peptide 49 pg/mL (<100)
--- NOTE | 2022-04-09 15:22 | PC.NURSE ---
pt to us
[2022-04-09 17:09] VITALS: BP 107/54; PULSE 103; RESP 20; TEMP 36.9; O2SAT 99
--- NOTE | 2022-04-09 18:36 | P.CONOB_ITS ---
[employer]PERVISOR - CN: HPI Data of Consult Consult date: 04/09/22 Primary Care Provider: None Physician Consult Narrative Narrative: I was consulted on Annika Ruth who is a 27 year old female presented emergency room with abdominal pain no vaginal bleeding in addition to other complaints in the lower extremity bilateral swelling and upper leg pain and knee pain . The workup in the emergency room include the following: HCG 1512, CBC within normal, Rh positive, UA was positive for WBCs and leukocyte esterase, ultrasound showed the following: The uterus measures 9.0 cm in length and 4.0 x 5.3 cm in AP and transverse dimensions. There is an anechoic focus along the endometrium, suggestive of a gestational sac with mean sac diameter of 0.3 cm. No definite yolk sac or pole is seen at this time. The right ovary measures 4.2 x 2.2 x 2.3 cm. There is a complex structure in the right ovary measuring up to 2.2 cm without internal flow, suggestive of a corpus luteal cyst. The left ovary measures 3.3 x 1.9 x 3.7 cm. No adnexal mass is identified. No free fluid is seen. cc:: CC: OB [facility] Past Medical History Medical History No known health problems Social History Social History Alcohol intake: never Patient Tobacco Use Status: Never used Tobacco Use of substances other than those prescribed or required for medical reasons: No Advance Directives: No Advance Directives Information Provided: No Patient : No Meds Allergies Allergy/AdvReac Type Severity Reaction Status Date / Time No Known Allergies Allergy Unknown UNKNOWN Verified 04/09/22 12:17 [NO KNOWN ALLERGIES] Home Medications Medication Instructions Recorded Confirmed Last Taken Type No Known Home Meds 10/16/20 10/16/20 Unknown History [employer] Physical Exam Vitals Vital signs: Temp Pulse Resp BP Pulse Ox O2 Del Method 98.5 F 103 H 20 107/54 L 99 04/09/22 17:09 04/09/22 17:09 04/09/22 17:09 04/09/22 17:09 04/09/22 17:09 04/09/22 17:09 BMI result Body Mass Index 31.8 Additional Comments: Physical exam reported by MAGGIE Siu as the following Abdominal exam has benign, no guarding findings and pelvic exam, cervix closed with no other abnormalities [employer]PER[employer] - Results Labs CBC & Chem 7: 04/09/22 12:26 04/09/22 12:26 Labs: Short CBC 04/09/22 Range/Units 12:26 WBC 7.3 (4.8-10.8) X10*3/uL Hgb 11.7 L (12.0-16.0) g/dl Hct 35.4 L (37.0-47.0) % Plt Count 315 (160-400) X10*3/uL BMP 04/09/22 12:26 Sodium 138 Potassium 3.8 Chloride 107 Carbon Dioxide 24 BUN 7 L Creatinine 0.71 Calcium 9.2 Liver Function 04/09/22 Range/Units 12:26 Total Bilirubin 0.4 (0.0-1.0) mg/dL AST 14 (5-31) U/L ALT 11 (0-31) U/L Alkaline Phosphatase 56 (39-117) U/L Albumin 4.1 (3.5-5.0) g/dL Urine 04/09/22 04/09/22 Range/Units 12:26 12:26 Urine Color YELLOW Urine Appearance CLEAR Urine pH 5.5 (5.0-8.0) Ur Specific [place] 1.025 (1.005-1.025) Urine Protein NEG (NEG-TRACE) MG/DL Urine Glucose (UA) NEG (NEG) MG/DL Urine Test POSITIVE H (NEGATIVE) Imaging US - abdomen: Radiologist's impression: ITS Impressions Renal Ultrasound 04/09/22 14:55 IMPRESSION: No hydronephrosis or calculus identified. Venous Duplex 04/09/22 15:12 IMPRESSION: No DVT demonstrated either lower extremity. Pelvic/Transvag US 04/09/22 15:25 IMPRESSION: A 0.3 cm anechoic focus along the endometrium is suggestive of a gestational sac, though no yolk sac or pole is seen at this time to definitively confirm intrauterine . Therefore, short-term sonographic follow-up is recommended to assess for these findings. No adnexal mass is seen to strongly suggest ectopic . Assessment and Plan (1) Early stage of : Status: Acute Plan Recommended to MAGGIE Freedman in the emergency room the following: The patient is to follow up in the emergency room in 48 hours, to Repeat hCG in 48 hours with repeat pelvic ultrasound to confirm intrauterine gestation and rule out ectopic , meanwhile discharge the patient home with SAB and ectopic warnings, she is to come back in case of abdominal/pelvic pain or vaginal bleeding. vitamin 1 tablet p.o. q.d. Since UA is positive for leukocyte esterase and blood, recommended to send urine culture and treat with nitrofurantoin 100 mg p.o. b.i.d. for 5 days. I would defer the remaining workup and management of the lower extremity complained of the patient to the ER team. I spent a total of 20 minutes reviewing the chart, communicating with the ER provider and documenting in the medical record
== END 2022-04-09 19:12 | disposition home or self-care (01) ==
PROVIDERS: Physician Assistant; Emergency Provider Emergency Medicine
DX: O20.0 Threatened abortion (principal); R10.31 Right lower quadrant pain; N39.0 Urinary tract infection, site not specified; R60.0 Localized edema; Z3A.00 Weeks of gestation of pregnancy not specified
CPT/HCPCS: 36415; 76775; 76801; 76817; 80053; 81001; 81025; 83880; 84702; 85025; 85610; 85730; 93970; 99284

== ENCOUNTER 2022-06-22 13:15 | Emergency (ER) | payer OTHER, SELFPAY ==
[2022-06-22 13:19] VITALS: BP 125/78; PULSE 95; RESP 18; TEMP 36.3; O2SAT 99; BMI 32.3
--- NOTE | 2022-06-22 13:22 | ECG_ITS ---
Test Reason : od Blood Pressure : / mmHG Vent. Rate : 095 BPM Atrial Rate : 095 BPM P-R Int : 112 ms QRS Dur : 066 ms QT Int : 338 ms P-R-T Axes : 040 000 031 degrees QTc Int : 424 ms Normal sinus rhythm Normal ECG No previous ECGs available Referred By: Generic ED Physician Electronically Signed By:BOBO OLIVERA
[2022-06-22 13:55] LABS: MANUAL DIFF FLAG NO
[2022-06-22 13:56] LABS: Basophils Percent Auto 0.3 % (0-2); Eosinophils Absolute Auto 0.2 X10*3/uL (0.0-0.4); Eosinophils Percent Auto 1.6 % (0-4); Hematocrit 40.2 % (37.0-47.0); Hemoglobin 13.6 g/dl (12.0-16.0); Imm Gran Abs Auto 0.03 X10*3/uL (0.00-0.03); Imm Gran Pct Auto 0.3 % (0.0-0.4); Lymphocytes Absolute Auto 2.7 X10*3/uL (1.2-4.9); Lymphocytes Percent Auto 24.4 % (20-40); Mean Corpuscular HGB Conc 33.8 g/dl (31.0-35.0); Mean Corpuscular Hemoglobin 27.4 pg (27.0-33.0); Mean Platelet Volume 9.1 fL (9.4-12.3); Monocytes Absolute Auto 0.6 X10*3/uL (0.1-1.2); Monocytes Percent Auto 5.2 % (2-11); Neutrophils Absolute Auto 7.4 x10*3/uL (2.0-8.3); Neutrophils Percent Auto 68.2 % (45-73); Platelet Count 355 X10*3/uL (160-400); Red Blood Count 4.96 X10*6/uL (4.20-5.50); Red Cell Distribution Width 13.1 % (11.0-16.0); White Blood Count 10.8 X10*3/uL (4.8-10.8)
[2022-06-22 14:03] LABS: Appearance Urine Clear; Color Urine Yellow; Glucose Urine UA Negative (Negative); Leukocyte Esterase Urine Small (1+) (Negative); Nitrite Urine Positive (Negative); PH 5.5 (5.0-9.0); Specific Gravity - Urine 1.025 (1.005-1.025); UMIC TRIGGER UACC YES; Urine Blood Negative (Negative); Urine Ketones Negative (Negative); Urine Protein Negative (Neg-Trace)
[2022-06-22 14:05] LABS: Bacteria Urine 4+ (None Seen); Hyaline Casts Urine 0-2 /LPF (0-2); UACC Culture Trigger YES
[2022-06-22 14:05] LABS: UPreg QC Valid YES; Urine Pregnancy NEGATIVE (NEGATIVE)
[2022-06-22 14:16] LABS: Acetaminophen LAB 2 mcg/mL (<30); Alanine Aminotransferase 12 U/L (0-31); Albumin Level 4.8 g/dL (3.5-5.0); Alkaline Phosphatase 62 U/L (39-117); Anion Gap 18 (12-20); Aspartate Amino Transferase 16 U/L (5-31); Bilirubin Direct 0.2 mg/dL (0.0-0.5); Bilirubin Total 0.4 mg/dL (0.0-1.0); Blood Urea Nitrogen 10 mg/dL (9-16); Calcium 9.9 mg/dL (8.4-10.2); Carbon Dioxide 21 mmol/L (22-29); Chloride 104 mmol/L (96-108); Creatinine Clr Calc Pharmacy 83.3; Estimated Glomerular Filt Rate > 60; Ethanol < 10 mg/dL; Glucose Random 86 mg/dL (60-115); Lipase 21 U/L (8-78); Potassium 3.5 mmol/L (3.3-5.1); Salicylate 21.6 mg/dL (15-30); Sodium 139 mmol/L (135-145); Total Protein 8.2 g/dL (6.5-8.0)
--- NOTE | 2022-06-22 14:56 | ED_ITS ---
HPI - Overdose General Chief Complaint: Overdose Stated Complaint: Took 9-10 excedrin T-1/N/V Time Seen by Provider: 06/22/22 14:37 Source: patient Mode of arrival: ambulatory Limitations: no limitations History of Present Illness HPI Narrative: Patient presents emergency department for evaluation of abdominal pain in addition to nausea and vomiting after accidental overdose. She states that she has been experiencing dental pain due to fractured molars and impaction, has appointment with an oral surgeon in August 2022. States that last night around 2330 within 1 hour time frame she took 10 pills of either Excedrin migraine or Excedrin extra-strength in addition to ibuprofen 800 mg due to her amount of pain. She denies any suicidal ideations. She states that she wanted the pain to go away, and pop couple of extra holes with help. She reports a single episode of vomiting today. Pain to the abdomen is epigastric and localized, 6/10. Denies any fevers, chills, bloody or dark stools/emesis. Related Data Previous Rx's Medication Instructions Recorded cephalexin 500 mg capsule 500 mg PO QID 7 days #28 caps 04/09/22 oxycodone 5 mg tablet 5 mg PO Q8H PRN pain #7 tabs 06/22/22 Allergies Allergy/AdvReac Type Severity Reaction Status Date / Time No Known Allergies Allergy Unknown UNKNOWN Verified 04/09/22 12:17 [NO KNOWN ALLERGIES] Review of Systems Review of Systems: Constitutional : No Weight loss, No Fever, No Chills ENT/Mouth :? No sore throat, No Rhinorrhea Eyes: No Swelling, No Redness Cardiovascular : No Chest Pain, No SOB, No Edema Respiratory : No Cough, No Sputum, No Wheezing Gastrointestinal : Positive Nausea, Positive Vomiting, no Diarrhea, positive abdominal pain, No Hematochezia, No Melena Genitourinary : No Dysuria, No Urinary Frequency, No Hematuria, No Urgency? Musculoskeletal : No joint pain, No Myalgias, No Joint Swelling Skin : No Skin Lesions, No rash Neuro : No Weakness, No Numbness, No Dizziness, No Headache Psych : No Anxiety/Panic, No Depression Heme/Lymph: No Bruising, No Lymphadenopathy Endocrine : No Polyuria, No Polydipsia Yes all other systems are reviewed and are negative PMFSH Past Medical History Attestation statement: The following information was validated with the patient. Source: old records reviewed Medical History No known health problems Social History Social History Alcohol intake: current Alcohol intake frequency: holidays/special occasions only Alcohol type: hard liquor Patient Tobacco Use Status: Never used Tobacco Smoked in Last 30 Days: No Use of substances other than those prescribed or required for medical reasons: No Advance Directives: No Advance Directives Information Provided: No Patient : No Physical Exam Vital Signs: Vital Signs: Last Vital Signs Temp 98.5 F 06/22/22 15:15 Pulse 80 06/22/22 15:15 Resp 16 06/22/22 15:15 BP 114/73 06/22/22 15:15 Pulse Ox 98 06/22/22 15:15 O2 Del Method 06/22/22 15:15 BMI result Body Mass Index 32.3 Appearance: Alert.?Oriented to person, place and time. No acute distress.?Normal affect. Eyes: Pupils equal, round and reactive to light.? ENT: Pharynx normal.??Dental fractures to the bilateral upper wisdom teeth without localized, erythema, or evidence of abscess. No trismus. Not consistent with retropharyngeal or peritonsillar abscess. Neck: Normal inspection.? Neck supple.?? CVS: Heart sounds normal. Normal heart rate and rhythm.? Pulses normal.?? Respiratory: No respiratory distress.? Lung sounds clear to auscultation bilaterally?? Abdomen: Soft and non-tender. Normoactive bowel sounds. ? Skin: Skin warm and dry.? Normal skin color.? Extremities: No lower extremity edema.? Neuro: Moves all extremities spontaneously. Sensation intact bilaterally. No focal neuro deficits. Ambulates with normal steady gait. Course Course Course Narrative: Patient is a 27-year-old female with no significant past medical history presenting to emergency department for evaluation of accidental acetaminophen an aspirin overdose. Has dental pain from a cracked wisdom teeth and impaction, scheduled for an appointment with Oral surgeon in August 2022. Patient reporting to have taken total of 2500mg acetaminophen. 2500mg aspirin, 800mg ibuprophen at 2330 yesterday. Serum labs obtained from triage at 1334. Reevaluation(s) Reevaluation #1: CBC and CMP are overall unremarkable. LFTs within normal limits. PTT/PT/INR pending at this time. Salicylate level 21.6, acetaminophen level to, ethyl alcohol <10. EKG reveals normal sinus rhythm, no acute ischemic findings or abnormalities. Urinalysis is positive for nitrates, leukocyte esterase, and urine WBC, States she is currently taking cephalexin as prescribed for prevention of dental infection, Given she is without genitourinary symptoms at this time will not had any additional coverage. Urine sent for culture, patient will be contacted with any concerning findings. Contacted poison control who at this time recommend supportive care, repeat acetaminophen 2 hrs after first, INR, salicylate level every 1-2 hours until there are 2 down trending less than 30, and venous blood gas. Sodium bicarbonate to be administered if salicylate level >30; bolus dosing as well as maintenance dosing. Patient due for repeat labs at 15:30 Time: 14:57 Reevaluation #2: 2 hour repeat acetaminophen level is down to 1, salicylate level is down to 19.4, will obtain repeat salicylate level within 1 hour, due for labs at 1630. VBG overall normal, mild metabolic acidosis with bicarb at 20. Per poison Control no indication for sodium bicarb at this time as salicylate level has not exceeded 30. Coagulation studies are within normal limits. Time: 15:59 Reevaluation #3: Patient's salicylate level continues to be down trending at 17.9, acetaminophen <1, vital signs are stable. Med and sedation status remains normal. Spoke with poison Control, who recommend cessation of lab monitoring at this time, patient would be cleared for discharge. Review these findings with patient. Discussed appropriate amount of acetaminophen/aspirin/ibuprofen to be consumed. Advised against the excessive use of medications as this will likely not alter the level of analgesia that she receives, and can cause internal organ damage. Patient verbalized understanding of this. Discussed with patient, provide oxycodone to use only for severe pain, advised that she will need to follow-up outpatient with her dental provider for further evaluation and treatment. Patient verbalized understanding. She is discharged home in stable condition. Time: 17:07 MDM - Overdose Medical Records Attestation: I reviewed the patient's medical records. Lab Data Attestation: I reviewed the patient's lab results. Result diagrams: 06/22/22 13:35 06/22/22 13:34 Labs: Lab Results 06/22/22 06/22/22 06/22/22 Range/Units 13:34 13:35 13:37 WBC 10.8 (4.8-10.8) X10*3/uL RBC 4.96 (4.20-5.50) X10*6/uL Hgb 13.6 (12.0-16.0) g/dl Hct 40.2 (37.0-47.0) % MCV 81.0 (80.0-98.0) fL MCH 27.4 (27.0-33.0) pg MCHC 33.8 (31.0-35.0) g/dl RDW 13.1 (11.0-16.0) % Plt Count 355 (160-400) X10*3/uL MPV 9.1 L (9.4-12.3) fL Immature Gran % (Auto) 0.3 (0.0-0.4) % Neut % (Auto) 68.2 (45-73) % Lymph % (Auto) 24.4 (20-40) % Harlan % (Auto) 5.2 (2-11) % Eos % (Auto) 1.6 (0-4) % Baso % (Auto) 0.3 (0-2) % Lymph # (Auto) 2.7 (1.2-4.9) X10*3/uL Harlan # (Auto) 0.6 (0.1-1.2) X10*3/uL Eos # (Auto) 0.2 (0.0-0.4) X10*3/uL Baso # (Auto) 0.0 (0.0-0.2) X10*3/uL Abs Immat Gran (auto) 0.03 (0.00-0.03) X10*3/uL Absolute Neuts (auto) 7.4 (2.0-8.3) x10*3/uL Absolute Nucleated RBC 0.000 (0.0-0.012) X10*3/uL Nucleated RBC % (auto) 0.0 (0.0-0.2) /100WBC PT (10.0-13.1) SEC INR (0.9-1.1) APTT (26.0-36.4) SEC VBG pH (7.32-7.43) VBG pCO2 mmHg VBG pO2 mmHg VBG HCO3 (22-26) mmol/L VBG O2 Saturation % VBG Base Excess mmol/L Sodium 139 (135-145) mmol/L Potassium 3.5 (3.3-5.1) mmol/L Chloride 104 (96-108) mmol/L Carbon Dioxide 21 L (22-29) mmol/L Anion Gap 18 (12-20) BUN 10 (9-16) mg/dL Creatinine 0.88 (0.5-1.4) mg/dL Estim Creat Clear Calc 83.3 Estimated GFR > 60 Random Glucose 86 (60-115) mg/dL Calcium 9.9 D (8.4-10.2) mg/dL Total Bilirubin 0.4 (0.0-1.0) mg/dL Direct Bilirubin 0.2 (0.0-0.5) mg/dL AST 16 (5-31) U/L ALT 12 (0-31) U/L Alkaline Phosphatase 62 (39-117) U/L Total Protein 8.2 H (6.5-8.0) g/dL Albumin 4.8 (3.5-5.0) g/dL Lipase 21 (8-78) U/L Urine Color Urine Appearance Urine pH (5.0-9.0) Ur Specific Gilmore (1.005-1.025) Urine Protein (Neg-Trace) mg/dL Urine Glucose (UA) (Negative) mg/dL Urine Ketones (Negative) mg/dL Urine Blood (Negative) Urine Nitrite (Negative) Ur Leukocyte Esterase (Negative) Urine RBC (0-2) /HPF Urine WBC (0-5) /HPF Ur Squamous Epith Cells (0-2) /HPF Urine Bacteria (None Seen) Hyaline Casts (0-2) /LPF Urine Test NEGATIVE (NEGATIVE) Salicylates 21.6 (15-30) mg/dL Acetaminophen 2 (<30) mcg/mL Ethyl Alcohol < 10 mg/dL 06/22/22 06/22/22 06/22/22 Range/Units 13:38 15:19 15:19 WBC (4.8-10.8) X10*3/uL RBC (4.20-5.50) X10*6/uL Hgb (12.0-16.0) g/dl Hct (37.0-47.0) % MCV (80.0-98.0) fL MCH (27.0-33.0) pg MCHC (31.0-35.0) g/dl RDW (11.0-16.0) % Plt Count (160-400) X10*3/uL MPV (9.4-12.3) fL Immature Gran % (Auto) (0.0-0.4) % Neut % (Auto) (45-73) % Lymph % (Auto) (20-40) % Harlan % (Auto) (2-11) % Eos % (Auto) (0-4) % Baso % (Auto) (0-2) % Lymph # (Auto) (1.2-4.9) X10*3/uL Harlan # (Auto) (0.1-1.2) X10*3/uL Eos # (Auto) (0.0-0.4) X10*3/uL Baso # (Auto) (0.0-0.2) X10*3/uL Abs Immat Gran (auto) (0.00-0.03) X10*3/uL Absolute Neuts (auto) (2.0-8.3) x10*3/uL Absolute Nucleated RBC (0.0-0.012) X10*3/uL Nucleated RBC % (auto) (0.0-0.2) /100WBC PT 12.2 (10.0-13.1) SEC INR 1.1 (0.9-1.1) APTT 34.0 (26.0-36.4) SEC VBG pH (7.32-7.43) VBG pCO2 mmHg VBG pO2 mmHg VBG HCO3 (22-26) mmol/L VBG O2 Saturation % VBG Base Excess mmol/L Sodium (135-145) mmol/L Potassium (3.3-5.1) mmol/L Chloride (96-108) mmol/L Carbon Dioxide (22-29) mmol/L Anion Gap (12-20) BUN (9-16) mg/dL Creatinine (0.5-1.4) mg/dL Estim Creat Clear Calc Estimated GFR Random Glucose (60-115) mg/dL Calcium (8.4-10.2) mg/dL Total Bilirubin (0.0-1.0) mg/dL Direct Bilirubin (0.0-0.5) mg/dL AST (5-31) U/L ALT (0-31) U/L Alkaline Phosphatase (39-117) U/L Total Protein (6.5-8.0) g/dL Albumin (3.5-5.0) g/dL Lipase (8-78) U/L Urine Color Yellow Urine Appearance Clear Urine pH 5.5 (5.0-9.0) Ur Specific Gilmore 1.025 (1.005-1.025) Urine Protein Negative (Neg-Trace) mg/dL Urine Glucose (UA) Negative (Negative) mg/dL Urine Ketones Negative (Negative) mg/dL Urine Blood Negative (Negative) Urine Nitrite Positive H (Negative) Ur Leukocyte Esterase Small (1+) H (Negative) Urine RBC 3-5 H (0-2) /HPF Urine WBC 6-10 H (0-5) /HPF Ur Squamous Epith Cells 6-10 (0-2) /HPF Urine Bacteria 4+ (None Seen) Hyaline Casts 0-2 (0-2) /LPF Urine Test (NEGATIVE) Salicylates 19.4 (15-30) mg/dL Acetaminophen 1 (<30) mcg/mL Ethyl Alcohol mg/dL 06/22/22 06/22/22 Range/Units 15:27 16:31 WBC (4.8-10.8) X10*3/uL RBC (4.20-5.50) X10*6/uL Hgb (12.0-16.0) g/dl Hct (37.0-47.0) % MCV (80.0-98.0) fL MCH (27.0-33.0) pg MCHC (31.0-35.0) g/dl RDW (11.0-16.0) % Plt Count (160-400) X10*3/uL MPV (9.4-12.3) fL Immature Gran % (Auto) (0.0-0.4) % Neut % (Auto) (45-73) % Lymph % (Auto) (20-40) % Harlan % (Auto) (2-11) % Eos % (Auto) (0-4) % Baso % (Auto) (0-2) % Lymph # (Auto) (1.2-4.9) X10*3/uL Harlan # (Auto) (0.1-1.2) X10*3/uL Eos # (Auto) (0.0-0.4) X10*3/uL Baso # (Auto) (0.0-0.2) X10*3/uL Abs Immat Gran (auto) (0.00-0.03) X10*3/uL Absolute Neuts (auto) (2.0-8.3) x10*3/uL Absolute Nucleated RBC (0.0-0.012) X10*3/uL Nucleated RBC % (auto) (0.0-0.2) /100WBC PT (10.0-13.1) SEC INR (0.9-1.1) APTT (26.0-36.4) SEC VBG pH 7.41 (7.32-7.43) VBG pCO2 32 mmHg VBG pO2 38 mmHg VBG HCO3 20 L (22-26) mmol/L VBG O2 Saturation 61.0 % VBG Base Excess -2.8 mmol/L Sodium (135-145) mmol/L Potassium (3.3-5.1) mmol/L Chloride (96-108) mmol/L Carbon Dioxide (22-29) mmol/L Anion Gap (12-20) BUN (9-16) mg/dL Creatinine (0.5-1.4) mg/dL Estim Creat Clear Calc Estimated GFR Random Glucose (60-115) mg/dL Calcium (8.4-10.2) mg/dL Total Bilirubin (0.0-1.0) mg/dL Direct Bilirubin (0.0-0.5) mg/dL AST (5-31) U/L ALT (0-31) U/L Alkaline Phosphatase (39-117) U/L Total Protein (6.5-8.0) g/dL Albumin (3.5-5.0) g/dL Lipase (8-78) U/L Urine Color Urine Appearance Urine pH (5.0-9.0) Ur Specific Gilmore (1.005-1.025) Urine Protein (Neg-Trace) mg/dL Urine Glucose (UA) (Negative) mg/dL Urine Ketones (Negative) mg/dL Urine Blood (Negative) Urine Nitrite (Negative) Ur Leukocyte Esterase (Negative) Urine RBC (0-2) /HPF Urine WBC (0-5) /HPF Ur Squamous Epith Cells (0-2) /HPF Urine Bacteria (None Seen) Hyaline Casts (0-2) /LPF Urine Test (NEGATIVE) Salicylates 17.9 (15-30) mg/dL Acetaminophen < 1 (<30) mcg/mL Ethyl Alcohol mg/dL ECG Data Attestation: I personally reviewed and interpreted this ECG as follows: ECG interpretation date: 06/22/22 Prior ECG tracings: not available for review Interpretation: Rate: 95 Rhythm:? Normal sinus rhythm Altheimer:? Normal Normal P waves.? Normal YOHAN.?? Normal QRS complex.?? ST T wave :??No ST elevation, no ST depression, no T-wave inversion qTC: 424 prior studies:? None available for review The study has been interpreted contemporaneously by me. Discharge Plan Discharge Clinical Impression: Accidental acetaminophen overdose, Accidental aspirin overdose, Pain, dental Patient Disposition: Home, Self-Care Instructions: Acetaminophen Overdose (ED), Toothache (ED) Additional Instructions: As we discussed, taking additional doses of [id number] pain medications will likely not results in increased pain management, and can actually cause damage to your internal organs. Refrain from any dwnd-[id number] medications today. Tomorrow you may resume [id number]-[id number] medications, You can take ibuprofen 200 mg, 3 tablets (600mg) every 6-8 hours as needed for pain, in addition to Tylenol 500 mg, 2 tablets (1,000mg) every 4-6 hours as needed for pain, but not to exceed 3 doses daily (3,000mg).? You have been given a prescription for oxycodone to use only as needed for severe pain. This is a narcotic. It may be addictive, it can make you drowsy. You should not drive, go to work, operate machinery, or drink alcohol while taking this medication. You will need to follow-up with your dental provider for further evaluation and treatment until you are able to be seen by the oral surgeon. Additionally, you may continue to contact the oral surgeon's office to see whether they may see you sooner than August. Return to emergency department with any new or worsening symptoms or concerns. Prescriptions: New oxycodone 5 mg tablet 5 mg PO Q8H PRN (Reason: pain) Qty: 7 0RF Rx Instructions: Partial Fill upon patient request. No Action cephalexin 500 mg capsule 500 mg PO QID 7 Days Qty: 28 0RF
[2022-06-22 15:15] VITALS: BP 114/73; PULSE 80; RESP 16; TEMP 36.9; O2SAT 98
[2022-06-22 15:31] LABS: Venous Blood Gas Refer to POC result
[2022-06-22 15:32] LABS: VBG Base Excess -2.8 mmol/L; VBG HCO3 20 mmol/L (22-26); VBG pCO2 32 mmHg; VBG pH 7.41 (7.32-7.43); VBG pO2 38 mmHg
[2022-06-22 15:51] LABS: Acetaminophen LAB 1 mcg/mL (<30); Salicylate 19.4 mg/dL (15-30)
[2022-06-22 15:55] LABS: INTERNATIONAL NORM RATIO 1.1 (0.9-1.1); Prothrombin Time 12.2 SEC (10.0-13.1)
[2022-06-22 17:01] LABS: Acetaminophen LAB < 1 mcg/mL (<30); Salicylate 17.9 mg/dL (15-30)
[2022-06-22 17:31] VITALS: BP 130/76; PULSE 94; RESP 18; O2SAT 99
== END 2022-06-22 17:32 | disposition home or self-care (01) ==
PROVIDERS: Nurse Practitioner Family; Emergency Provider Emergency Medicine
DX: T39.1X1A Poisoning by 4-Aminophenol derivatives, accidental (unintentional), initial encounter (principal); T39.311A Poisoning by propionic acid derivatives, accidental (unintentional), initial encounter; R10.13 Epigastric pain; Y92.003 Bedroom of unspecified non-institutional (private) residence as the place of occurrence of the external cause; K08.89 Other specified disorders of teeth and supporting structures
CPT/HCPCS: 36415; 80053; 80143; 80179; 81001; 81003; 81025; 82077; 82248; 82803; 83690; 85025; 85610; 85730; 87086; 87088; 87186; 93005; 99285

== ENCOUNTER 2022-06-30 08:03 | Emergency (ER) | payer OTHER, SELFPAY ==
[2022-06-30 08:06] VITALS: BP 122/74; PULSE 107; RESP 18; O2SAT 98; BMI 32.3
[2022-06-30 08:30] LABS: Strep A Nucleic Acid Positive (Negative)
[2022-06-30 08:41] LABS: COVID-19 Test Negative (Negative); IDNOW Serial# 55D5AD1C
--- NOTE | 2022-06-30 09:12 | ED.GENADULT ---
HPI - General Adult General Chief complaint: General Medical Stated complaint: throat pain/fever t-1 Time Seen by Provider: 06/30/22 09:12 Source: patient Mode of arrival: ambulatory Limitations: no limitations History of Present Illness HPI narrative: Patient is a 27 year old female presenting to the emergency department today with a sore throat. Patient states that over the last 2 days, she has had a sore throat. Patient denies any dizziness, lightheadedness, abdominal pain, nausea, vomiting, fever, chills, blurry vision, double vision, loss of vision, chest pain, difficulty breathing, shortness of breath, back pain, night sweats, pain with urination, increased urinary frequency, increased urinary urgency, blood in her urine or stool, syncope or a near syncopal episode, recent trauma or falls, bowel incontinence, bladder incontinence, bowel retention, bladder retention, or any other complaints at this time. Onset (ago): day(s) (2) Radiation: non-radiation Severity: mild Severity scale (1-10): 1 Quality: aching and dull Pain Consistency: constant Relieving factors: none Exacerbating factors: none Associated symptoms: denies other symptoms Treatments prior to arrival: none Related Data Previous Rx's Medication Instructions Recorded cephalexin 500 mg capsule 500 mg PO QID 7 days #28 caps 04/09/22 oxycodone 5 mg tablet 5 mg PO Q8H PRN pain #7 tabs 06/22/22 penicillin V potassium 500 mg 500 mg PO BID 10 days #20 tabs 06/30/22 tablet Allergies Allergy/AdvReac Type Severity Reaction Status Date / Time No Known Allergies Allergy Unknown UNKNOWN Verified 04/09/22 12:17 [NO KNOWN ALLERGIES] Review of Systems Constitutional: Constitutional: Reports no additional constitutional complaints, Denies chills, Denies fever(s) and Denies night sweats Eyes: Eyes: Reports no additional eye complaints, Denies blurry vision, Denies change in vision, Denies diplopia, Denies eye discharge, Denies loss of vision and Denies eye pain ENT: Denies dizziness and Reports sore throat Cardiovascular: Cardiovascular: Reports no additional cardiovascular complaints, Denies chest pain, Denies lightheadedness, Denies Loss of Consciousness and Denies dyspnea Respiratory: Respiratory: Reports no additional respiratory complaints and Denies dyspnea Gastrointestinal: Gastrointestinal: Reports no additional gastrointestinal complaints, Denies abdominal pain, Denies melena, Denies hematochezia, Denies change in bowel habits and Denies change in stool character Genitourinary: Genitourinary: Denies hematuria, Denies urinary frequency, Denies dysuria, Denies urinary incontinence, Denies urinary hesitancy and Denies urinary urgency Musculoskeletal: Musculoskeletal: Reports no additional musculoskeletal complaints, Denies numbness and Denies tingling Neurologic: Denies dizziness, Denies loss of vision, Denies numbness and Denies tingling Psychiatric: Psychiatric: Reports no additional psychiatric complaints Endocrine: Endocrine: Reports no additional endocrine complaints Hematologic/Lymphatic: Hematologic/Lymphatic: Reports no additional hematologic/lymphatic complaints Allergic/Immunologic: Allergic/Immunologic: Reports no additional allergic/immunologic complaints PMFSH Past Medical History Attestation statement: The following information was validated with the patient. Source: old records reviewed Medical History No known health problems Social History Social History Alcohol intake: current Alcohol intake frequency: holidays/special occasions only Alcohol type: hard liquor Patient Tobacco Use Status: Never used Tobacco Advance Directives: No Advance Directives Information Provided: No Physical Exam ED Vital Signs: Vital Signs - 24 hr 06/30/22 08:06 Pulse Rate 107 H Respiratory Rate 18 Blood Pressure 122/74 Pulse Oximetry 98 Oxygen Delivery Method Room Air BMI result Body Mass Index 32.3 Const General: cooperative, no acute distress, alert and awake Nutritional Appearance: well nourished Orientation/consciousness: patient oriented x3 Limitations: no limitations [facility] Head: Yes normal to inspection and Yes atraumatic Ears: hearing grossly normal bilaterally and external ears normal General nose exam: Normal external nose present, no nasal discharge noted and no epistaxis Face and sinus: Yes normal facial exam, No abrasion and No laceration Mouth: Normal oral and palatal mucosa present, no drooling and no muffled voice Throat: Yes abnormal tonsil (erythema with exudates) Eyes General: appearance normal, both eyes and all related structures Periorbital: periorbital findings normal Eyelids: Yes eyelids normal Conjunctivae: conjunctivae normal Pupils: Equal, round and reactive pupils present EOM: EOMs intact bilaterally Neck Neck: Yes normal visual inspection, Yes full ROM and Yes no lymphadenopathy Chest Chest palpation & inspection: normal inspection of the chest Resp Effort & Inspection: normal respiratory effort and able to speak in complete sentences Auscultation: clear to auscultation bilaterally Cardio Rate: regular rate Rhythm: regular rhythm GI Inspection: Yes normal to inspection Neuro General: patient oriented x3 and moves all extremities Cranial nerves: Yes Equal, round and reactive pupils present Cognition (Neuro): normal cognition Motor exam (neuro): 5/5 motor strength present throughout Sensory Exam: Normal double simultaneous stimulation for sensation Coordination: [id number] test normal Extrem General: Yes normal to inspection, Yes full ROM and Yes capillary refill normal Psych Appearance: grossly normal Mental Status: mental status grossly normal Affect: normal affect Attitude: cooperative Thought process: Normal thought process present Thought content: Normal thought content present Insight: Good insight present (Psych) Medical Decision Making MDM Narrative Medical decision making narrative: Patient is a 27 year old female presenting to the emergency department today with a sore throat. Patient's physical exam showed tonsilar erythema and exudates. Patient's rapid strep test was positive. I explained my physical exam findings as well as all test results to the patient. I answered all questions asked by the patient. I stressed the importance of the patient taking her medication as prescribed. I stressed the importance of the patient following up with her primary care provider. I stressed the importance of the patient returning to the emergency department immediately if her symptoms were to worsen or if she were to develop any dizziness, shortness of breath, difficulty breathing, chest pain, blurry vision, loss of vision, nausea, vomiting, abdominal pain, fever, chills, back pain, or any other complaints. Patient verbalized agreement and understanding with this treatment plan and discharge. Differential Diagnosis Differential Diagnosis: strep pharyngitis Medical Records Medical records reviewed: Yes I reviewed the patient's medical records. Lab Data Lab results reviewed: Yes I reviewed the patient's lab results. Labs: Lab Results 06/30/22 06/30/22 Range/Units 08:10 08:10 COVID-19 (REGIS) Negative (Negative) COVID-19 Clin Com See Note S. pyogenes GrpA MADDI Positive A (Negative) Discharge Plan Discharge Clinical Impression: Strep pharyngitis Patient Disposition: Home, Self-Care Additional Instructions: Follow up with your primary care provider. Return to the emergency department immediately if your symptoms worsen or if you develop any dizziness, shortness of breath, difficulty breathing, chest pain, blurry vision, loss of vision, nausea, vomiting, abdominal pain, fever, chills, back pain, or any other complaints. Prescriptions: New penicillin V potassium 500 mg tablet 500 mg PO BID 10 Days Qty: 20 0RF No Action cephalexin 500 mg capsule 500 mg PO QID 7 Days Qty: 28 0RF oxycodone 5 mg tablet 5 mg PO Q8H PRN (Reason: pain) Qty: 7 0RF Rx Instructions: Partial Fill upon patient request. Referrals: [facility] [Provider Group] (Call to establish and follow up with a primary care provider. If you already have a primary care provider, please follow up with them. ) [facility] [Provider [facility]] (Call to establish and follow up with a primary care provider. If you already have a primary care provider, please follow up with them. ) [facility] [Provider Group] (Call to establish and follow up with a primary care provider. If you already have a primary care provider, please follow up with them. ) Stand Alone Forms: Work/School Release Interventions: ED Discharge Assessment Last Done: 06/30/22 09:25 Discharge Date/Time: 06/30/22 09:25 Print Language: Andorran
== END 2022-06-30 09:25 | disposition home or self-care (01) ==
PROVIDERS: Emergency Provider Emergency Medicine
DX: J02.0 Streptococcal pharyngitis (principal); R50.9 Fever, unspecified; Z20.822 Contact with and (suspected) exposure to COVID-19
CPT/HCPCS: 87635; 87651; 99282; 99283

== ENCOUNTER 2023-03-14 13:17 | Emergency (ER) | payer OTHER, SELFPAY ==
--- NOTE | ~2023-03-14 | US_ITS ---
EXAMINATION: US OBSTETRICAL ULTRASOUND CLINICAL INFORMATION: Abdominal discomfort. Positive . COMPARISON: None available. LMP: 01/28/2023. Gestational age by maternal dates is 6 weeks 3 days. Estimated date of delivery by maternal dates is 11/04/2023. TECHNIQUE: Transabdominal first trimester OB ultrasound FINDINGS: There is a single intrauterine gestational sac with visible yolk sac, embryo/fetus, and cardiac activity. There is no significant subchorionic hemorrhage or hematoma. HR: 119 beats per minute. CRL (crown rump length): 0.43 cm (6 weeks 1 day +/- 4 days). PAUL (estimated date of delivery): 11/06/2023 +/- 4 days. MATERNAL ADNEXA: The right maternal ovary measures 3.2 x 2 x 1.8 cm. The left maternal ovary measures 2.2 x 1.2 x 1.2 cm. There is no significant maternal adnexal mass. No maternal pelvic ascites. US/US OB pelvic and transvaginal IMPRESSION: 1. Single intrauterine gestation with ultrasound gestational age of 6 weeks 1 day +/- 4 days. 2. Estimated date of delivery is 11/06/2023 +/- 4 days. 3. No maternal adnexal mass or pelvic ascites.
[2023-03-14 14:00] VITALS: BP 110/68; PULSE 85; RESP 18; TEMP 36.7; O2SAT 18; BMI 31.3
--- NOTE | 2023-03-14 14:31 | ED_ITS ---
HPI - Nausea/Vomiting/Diarrhea General Chief complaint: Nausea/Vomiting/Diarrhea Stated complaint: vomiting Time Seen by Provider: 03/14/23 17:08 Source: patient Mode of arrival: ambulatory Limitations: no limitations History of Present Illness HPI Narrative: Patient is G 7 P 3 A4, 6 weeks with vomiting for last 2 days no diarrhea unable to hold any fluids down. Patient not taking any medication had ultrasound done prior to my evaluation shows IUP 6 weeks 1 day, no significant abdominal pain Related Data Previous Rx's Medication Instructions Recorded cephalexin 500 mg capsule 500 mg PO QID 7 days #28 caps 04/09/22 oxycodone 5 mg tablet 5 mg PO Q8H PRN pain #7 tabs 06/22/22 penicillin V potassium 500 mg 500 mg PO BID 10 days #20 tabs 06/30/22 tablet cefuroxime axetil 250 mg tablet 250 mg PO BID 7 days #14 tabs 03/14/23 ondansetron 4 mg disintegrating 4 mg PO Q6-8H PRN nausea and 03/14/23 tablet vomiting #20 tabs Allergies Allergy/AdvReac Type Severity Reaction Status Date / Time No Known Allergies Allergy Unknown UNKNOWN Verified 04/09/22 12:17 [NO KNOWN ALLERGIES] Review of Systems Review of Systems: Yes all other systems are reviewed and are negative [facility] Past Medical History Medical History No known health problems Social History Social History Alcohol intake: current Alcohol intake frequency: holidays/special occasions only Alcohol type: hard liquor Patient Tobacco Use Status: Never used Tobacco Smoked in Last 30 Days: No Advance Directives: No Advance Directives Information Provided: No Patient : Yes Physical Exam Vital Signs: Vital Signs: Last Vital Signs Temp 98.7 F 03/14/23 19:48 Pulse 100 03/14/23 19:48 Resp 12 03/14/23 19:48 BP 106/57 L 03/14/23 19:48 Pulse Ox 100 03/14/23 19:48 O2 Del Method Room Air 03/14/23 19:48 BMI result Body Mass Index 31.3 Appearance: Alert. Oriented X3. No acute distress. Eyes: PERRLA, No Nystagmus ENT: Pharynx normal. Oral Mucosa moist Neck: Normal inspection. Neck supple. CVS: Normal heart rate and rhythm. Pulses normal. Respiratory: No respiratory distress. Equal air entry bilateral, no wheezing/rales/rhonchi Abdomen: Soft and nontender. Bowel sounds are present, no mass palpable, no CVA tenderness Skin: Skin warm and dry. Normal skin color. Normal skin turgor. Extremities: No lower extremity edema. No calf tenderness Neuro: Oriented X 3. No motor deficit. Course Course Course Narrative: RME; 27 yold female pregant abdomial discomfrot and no vaginal bleeding. no food stay down. labs and ultrasound ordered Medications Administered Discontinued Medications Generic Name Dose Route Start Last Admin Trade Name Freq PRN Reason Stop Dose Admin Sodium Chloride 1,000 mls @ 999 mls/hr 03/14/23 17:18 03/14/23 19:16 Ns IV 03/14/23 18:18 Infused .Q1H1M ONE Infusion Sodium Chloride 1,000 mls @ 999 mls/hr 03/14/23 17:18 03/14/23 18:50 Ns IV 03/14/23 18:18 999 mls/hr .Q1H1M ONE Administration Ceftriaxone Sodium 1 gm/ 50 mls @ 100 mls/hr 03/14/23 18:45 03/14/23 19:16 Sodium Chloride IV 03/14/23 19:14 Infused ONCE ONE Infusion Ondansetron HCl 4 mg 03/14/23 17:18 03/14/23 17:45 Ondansetron Hcl 4 Mg/2 Ml Vial IVPUSH 03/14/23 17:19 4 mg ONCE ONE Administration Medical Decision Making Medical Decision Making [facility] Narrative: Patient workup showed UTI likely making her vomiting worse from patient was given 2 L IV fluids IV Rocephin will discharge patient home on Ceftin and Zofran Lab Data [facility] Lab Attestation statement: I reviewed the patient's lab results. 03/14/23 15:14 03/14/23 15:14 Labs: Lab Results 03/14/23 03/14/23 03/14/23 Range/Units 15:14 15:14 15:14 WBC 8.7 (4.8-10.8) X10*3/uL RBC 4.54 (4.20-5.50) X10*6/uL Hgb 12.8 (12.0-16.0) g/dl Hct 36.7 L (37.0-47.0) % MCV 80.8 (80.0-98.0) fL MCH 28.2 (27.0-33.0) pg MCHC 34.9 (31.0-35.0) g/dl RDW 13.1 (11.0-16.0) % Plt Count 321 (160-400) X10*3/uL MPV 8.8 L (9.4-12.3) fL Immature Gran % (Auto) 0.3 (0.0-0.4) % Neut % (Auto) 71.4 (45-73) % Lymph % (Auto) 19.4 L (20-40) % Clare % (Auto) 7.5 (2-11) % Eos % (Auto) 1.1 (0-4) % Baso % (Auto) 0.3 (0-2) % Lymph # (Auto) 1.7 (1.2-4.9) X10*3/uL Clare # (Auto) 0.7 (0.1-1.2) X10*3/uL Eos # (Auto) 0.1 (0.0-0.4) X10*3/uL Baso # (Auto) 0.0 (0.0-0.2) X10*3/uL Abs Immat Gran (auto) 0.03 (0.00-0.03) X10*3/uL Absolute Neuts (auto) 6.2 (2.0-8.3) x10*3/uL Absolute Nucleated RBC 0.000 (0.0-0.012) X10*3/uL Nucleated RBC % (auto) 0.0 (0.0-0.2) /100WBC PT 11.6 (10.0-13.1) SEC INR 1.0 (0.9-1.1) APTT 29.2 (26.0-36.4) SEC Sodium 137 (135-145) mmol/L Potassium 3.9 (3.3-5.1) mmol/L Chloride 104 (96-108) mmol/L Carbon Dioxide 23 (22-29) mmol/L Anion Gap 14 (12-20) BUN 9 (9-16) mg/dL Creatinine 0.68 (0.5-1.4) mg/dL Estim Creat Clear Calc 106.0 Estimated GFR > 60 Random Glucose 79 (60-115) mg/dL Calcium 9.6 (8.4-10.2) mg/dL Total Bilirubin 1.0 (0.0-1.0) mg/dL AST 13 (5-31) U/L ALT 8 (0-31) U/L Alkaline Phosphatase 52 (39-117) U/L Total Protein 7.6 (6.5-8.0) g/dL Albumin 4.4 (3.5-5.0) g/dL Lipase 13 (8-78) U/L Beta HCG, Quant 21468 mIU/mL Urine Color Urine Appearance Urine pH (5.0-9.0) Ur Specific [place] (1.005-1.025) Urine Protein (Neg-Trace) mg/dL Urine Glucose (UA) (Negative) mg/dL Urine Ketones (Negative) mg/dL Urine Blood (Negative) Urine Nitrite (Negative) Ur Leukocyte Esterase (Negative) Urine RBC (0-2) /HPF Urine WBC (0-5) /HPF Ur Squamous Epith Cells (0-2) /HPF Urine Bacteria (None Seen) Hyaline Casts (0-2) /LPF Urine Test (NEGATIVE) Blood Type 03/14/23 03/14/23 03/14/23 Range/Units 15:14 17:41 17:41 WBC (4.8-10.8) X10*3/uL RBC (4.20-5.50) X10*6/uL Hgb (12.0-16.0) g/dl Hct (37.0-47.0) % MCV (80.0-98.0) fL MCH (27.0-33.0) pg MCHC (31.0-35.0) g/dl RDW (11.0-16.0) % Plt Count (160-400) X10*3/uL MPV (9.4-12.3) fL Immature Gran % (Auto) (0.0-0.4) % Neut % (Auto) (45-73) % Lymph % (Auto) (20-40) % Clare % (Auto) (2-11) % Eos % (Auto) (0-4) % Baso % (Auto) (0-2) % Lymph # (Auto) (1.2-4.9) X10*3/uL Clare # (Auto) (0.1-1.2) X10*3/uL Eos # (Auto) (0.0-0.4) X10*3/uL Baso # (Auto) (0.0-0.2) X10*3/uL Abs Immat Gran (auto) (0.00-0.03) X10*3/uL Absolute Neuts (auto) (2.0-8.3) x10*3/uL Absolute Nucleated RBC (0.0-0.012) X10*3/uL Nucleated RBC % (auto) (0.0-0.2) /100WBC PT (10.0-13.1) SEC INR (0.9-1.1) APTT (26.0-36.4) SEC Sodium (135-145) mmol/L Potassium (3.3-5.1) mmol/L Chloride (96-108) mmol/L Carbon Dioxide (22-29) mmol/L Anion Gap (12-20) BUN (9-16) mg/dL Creatinine (0.5-1.4) mg/dL Estim Creat Clear Calc Estimated GFR Random Glucose (60-115) mg/dL Calcium (8.4-10.2) mg/dL Total Bilirubin (0.0-1.0) mg/dL AST (5-31) U/L ALT (0-31) U/L Alkaline Phosphatase (39-117) U/L Total Protein (6.5-8.0) g/dL Albumin (3.5-5.0) g/dL Lipase (8-78) U/L Beta HCG, Quant mIU/mL Urine Color Dark Yellow Urine Appearance Cloudy Urine pH 6.5 (5.0-9.0) Ur Specific [place] >= 1.030 H (1.005-1.025) Urine Protein 30 (1+) H (Neg-Trace) mg/dL Urine Glucose (UA) Negative (Negative) mg/dL Urine Ketones 80 (Negative) mg/dL Urine Blood Negative (Negative) Urine Nitrite Positive H (Negative) Ur Leukocyte Esterase Small (1+) H (Negative) Urine RBC 6-10 H (0-2) /HPF Urine WBC 21-50 H (0-5) /HPF Ur Squamous Epith Cells 11-20 (0-2) /HPF Urine Bacteria 4+ (None Seen) Hyaline Casts 3-5 (0-2) /LPF Urine Test POSITIVE H (NEGATIVE) Blood Type O Positive Discharge Plan Discharge Clinical Impression: Hyperemesis gravidarum, Urinary tract infection affecting Patient Disposition: Home, Self-Care Instructions: Hyperemesis Gravidarum (ED), Urinary Tract Infection in (ED) Additional Instructions: Drink plenty of fluids Antibiotic as prescribed Nausea medication as prescribed Follow-up with your client development manager Report to the ER if high fever or vomiting continues/abdominal or flank pain Prescriptions: New cefuroxime axetil 250 mg tablet 250 mg PO BID 7 Days Qty: 14 0RF ondansetron 4 mg tablet,disintegrating 4 mg PO Q6-8H PRN (Reason: nausea and vomiting) Qty: 20 0RF No Action cephalexin 500 mg capsule 500 mg PO QID 7 Days Qty: 28 0RF oxycodone 5 mg tablet 5 mg PO Q8H PRN (Reason: pain) Qty: 7 0RF Rx Instructions: Partial Fill upon patient request. penicillin V potassium 500 mg tablet 500 mg PO BID 10 Days Qty: 20 0RF Interventions: ED Discharge Assessment Last Done: 03/14/23 20:01 Discharge Date/Time: 03/14/23 20:02
[2023-03-14 15:20] LABS: MANUAL DIFF FLAG NO
[2023-03-14 15:26] LABS: Basophils Percent Auto 0.3 % (0-2); Eosinophils Absolute Auto 0.1 X10*3/uL (0.0-0.4); Eosinophils Percent Auto 1.1 % (0-4); Hematocrit 36.7 % (37.0-47.0); Hemoglobin 12.8 g/dl (12.0-16.0); Imm Gran Abs Auto 0.03 X10*3/uL (0.00-0.03); Imm Gran Pct Auto 0.3 % (0.0-0.4); Lymphocytes Absolute Auto 1.7 X10*3/uL (1.2-4.9); Lymphocytes Percent Auto 19.4 % (20-40); Mean Corpuscular HGB Conc 34.9 g/dl (31.0-35.0); Mean Corpuscular Hemoglobin 28.2 pg (27.0-33.0); Mean Corpuscular Volume 80.8 fL (80.0-98.0); Mean Platelet Volume 8.8 fL (9.4-12.3); Monocytes Absolute Auto 0.7 X10*3/uL (0.1-1.2); Monocytes Percent Auto 7.5 % (2-11); Neutrophils Absolute Auto 6.2 x10*3/uL (2.0-8.3); Neutrophils Percent Auto 71.4 % (45-73); Platelet Count 321 X10*3/uL (160-400); Red Blood Count 4.54 X10*6/uL (4.20-5.50); Red Cell Distribution Width 13.1 % (11.0-16.0); White Blood Count 8.7 X10*3/uL (4.8-10.8)
[2023-03-14 15:40] LABS: Prothrombin Time 11.6 SEC (10.0-13.1)
[2023-03-14 15:43] LABS: Partial Thromboplastin Time 29.2 SEC (26.0-36.4)
[2023-03-14 15:47] LABS: Alanine Aminotransferase 8 U/L (0-31); Albumin Level 4.4 g/dL (3.5-5.0); Alkaline Phosphatase 52 U/L (39-117); Anion Gap 14 (12-20); Aspartate Amino Transferase 13 U/L (5-31); Blood Urea Nitrogen 9 mg/dL (9-16); Calcium 9.6 mg/dL (8.4-10.2); Carbon Dioxide 23 mmol/L (22-29); Chloride 104 mmol/L (96-108); Estimated Glomerular Filt Rate > 60; Glucose Random 79 mg/dL (60-115); Lipase 13 U/L (8-78); Potassium 3.9 mmol/L (3.3-5.1); Sodium 137 mmol/L (135-145); Total Protein 7.6 g/dL (6.5-8.0)
[2023-03-14 16:28] VITALS: BP 116/73; PULSE 82; RESP 16; TEMP 37.1; O2SAT 98
[2023-03-14] MEDS: 0.9 % Sodium Chloride 1,000 ML 999 ML IV ×2 (17:43→18:50)
[2023-03-14] MEDS: ondansetron HCL 4 MG/2 ML VIAL IVPUSH (17:45)
--- NOTE | 2023-03-14 17:48 | PC.NURSE ---
pt approx 6 weeks , unable to keep any foods down feeling weak. iv fluids infusing, medicated for nausea. pt denies any pain at this time.
[2023-03-14 17:51] LABS: Appearance Urine Cloudy; Color Urine Dark Yellow; Glucose Urine UA Negative (Negative); Leukocyte Esterase Urine Small (1+) (Negative); Nitrite Urine Positive (Negative); PH 6.5 (5.0-9.0); Specific Gravity - Urine >= 1.030 (1.005-1.025); UMIC TRIGGER UACC YES; Urine Blood Negative (Negative); Urine Ketones 80 mg/dL (Negative); Urine Protein 30 (1+) mg/dL (Neg-Trace)
[2023-03-14 17:52] LABS: UPreg QC Valid YES; Urine Pregnancy POSITIVE (NEGATIVE)
[2023-03-14 18:04] LABS: Bacteria Urine 4+ (None Seen); UACC Culture Trigger YES; WBC Urine 21-50 /HPF (0-5)
[2023-03-14 18:36] VITALS: BP 116/54; PULSE 89; RESP 12; TEMP 37.1; O2SAT 100
[2023-03-14] MEDS: cefTRIAXone sodium 1 GM in 0.9 % Sodium Chloride 50 ML IV (18:51)
[2023-03-14 19:11] VITALS: BP 119/56; PULSE 93; RESP 19; TEMP 36.7; O2SAT 100
--- NOTE | 2023-03-14 19:15 | PC.NURSE ---
Assumed care of pt. pt resting on stretcher, no acute complaints. Sts able to tolerate PO with no complications. Will advise . WHITLEY GOTTI.
[2023-03-14 19:48] VITALS: BP 106/57; PULSE 100; RESP 12; TEMP 37.1; O2SAT 100
== END 2023-03-14 20:02 | disposition home or self-care (01) ==
PROVIDERS: Physician Assistant; Emergency Provider Internal Medicine
DX: O21.0 Mild hyperemesis gravidarum (principal); Z3A.01 Less than 8 weeks gestation of pregnancy; O23.41 Unspecified infection of urinary tract in pregnancy, first trimester; N39.0 Urinary tract infection, site not specified; Z79.899 Other long term (current) drug therapy
CPT/HCPCS: 36415; 76801; 76817; 80053; 81001; 81025; 83690; 84702; 85025; 85610; 85730; 86900; 86901; 87086; 87088; 87186; 96361; 96374; 96375; 99284; 99285; J0696; J2405